=== PATIENT | female | born 1995 | race African-American/Black ===

== ENCOUNTER 2017-03-18 13:10 | Emergency (ER) | payer MEDICAID ==
[2017-03-18] MEDS ORDERED: ONDANSETRON 4 MG TAB.RAPDIS SL ONE (14:09)
[2017-03-18] MEDS ORDERED: NORMAL SALINE 1000 ML 1,000 ML IV PRN (14:09)
--- NOTE | 2017-03-18 14:09 | ER Document Report ---
ED Medical Screen (RME) - General Chief Complaint: Chest Pain Stated Complaint: CHEST PAIN/VOMITING Time Seen by Provider: 03/18/17 14:04 Mode of Arrival: Ambulatory Information source: Patient - HPI Patient complains to provider of: nausea and vomiting, Onset: Last week Onset/Duration: Persistent Quality of pain: Achy Severity: Mild Pain Level: 1 Associated Symptoms: Nausea, Vomiting Exacerbated by: Food Relieved by: Denies Similar symptoms previously: Yes Recently seen / treated by doctor: Yes Notes: 03/18/17 14:45 Patient is a 21-year-old female who is currently approximately 10 weeks , who presents to the emergency room complaining of nausea and vomiting that been occurring daily, she has been prescribed both Phenergan and Reglan but the vomiting has persisted, states anytime she tries to eat something it comes right back up, she was having some chest pain earlier today but that has completely resolved, she denies a fever, no urinary symptoms, no vaginal bleeding and no pelvic pain - Related Data Allergies/Adverse Reactions: No Known Allergies Allergy (Unverified 03/18/17 13:28) Past Medical History - Social History Chew tobacco use (# tins/day): No Frequency of alcohol use: None Drug Abuse: None Renal/ Medical History: Denies: Hx Peritoneal Dialysis Surgical Hx: Negative - Immunizations Hx Diphtheria, Pertussis, Tetanus Vaccination: No - unknown Physical Exam - Vital signs Vitals: Temp Pulse Resp BP Pulse Ox 98.5 F 108 H 16 124/85 97 03/18/17 13:26 03/18/17 13:26 03/18/17 13:26 03/18/17 13:26 03/18/17 13:26 Course - Vital Signs Vital signs: Temp Pulse Resp BP Pulse Ox 98.5 F 108 H 16 124/85 97 03/18/17 13:26 03/18/17 13:26 03/18/17 13:26 03/18/17 13:26 03/18/17 13:26 - Laboratory Result Diagrams: 03/18/17 14:20 03/18/17 14:20
[2017-03-18 14:54] LABS: APPEARANCE,URINE CLOUDY; BILIRUBIN,URINE NEGATIVE (NEGATIVE); GLUCOSE, URINE NEGATIVE (NEGATIVE); KETONES,URINE 20 mg/dL (NEGATIVE); LEUKOCYTE ESTERASE,URINE NEGATIVE (NEGATIVE); NITRITE,URINE NEGATIVE (NEGATIVE); PROTEIN,URINE NEGATIVE (NEGATIVE); URINE SPECIFIC GRAVITY 1.023
[2017-03-18 15:03] LABS: ABSOLUTE LYMPHOCYTES (AUTO) 1.2 10^3/uL (0.5-4.7); ABSOLUTE MONOCYTES (AUTO) 0.4 10^3/uL (0.1-1.4); ABSOLUTE NEUT (AUTO) 4.3 10^3/uL (1.7-8.2); BASOPHILS % (AUTO) 0.6 % (0-2); EOSINOPHILS % (AUTO) 0.4 % (0-6); HEMATOCRIT 39.7 % (36.0-47.0); HEMOGLOBIN 13.2 g/dL (12.0-15.5); HGB HCT DIFFERENCE -0.1; LYMPHOCYTES % (AUTO) 19.7 % (13-45); MEAN CORPUSCULAR HEMOGLOBIN 28.6 pg (27.0-33.4); MEAN CORPUSCULAR HGB CONC 33.2 g/dL (32.0-36.0); MEAN CORPUSCULAR VOLUME 86 fl (80-97); MONOCYTES % (AUTO) 6.8 % (3-13); SEGMENTED NEUTROPHILS % (AUTO) 72.5 % (42-78)
--- NOTE | 2017-03-18 15:15 | ER Document Report ---
ED GI/ - General Chief Complaint: Chest Pain Stated Complaint: CHEST PAIN/VOMITING Time Seen by Provider: 03/18/17 14:04 Mode of Arrival: Ambulatory Notes: The patient is a 21-year-old female, 10 weeks , presents with daily nausea and vomiting. She is trying Phenergan, Reglan and MagOxide without much relief of her symptoms. She is now having a dull mild headache and a burning in her substernal region. Denies hematemesis, fevers, diarrhea, abdominal pain, leakage of fluid, vaginal bleeding, constipation or rash - Related Data Allergies/Adverse Reactions: No Known Allergies Allergy (Unverified 03/18/17 13:28) Past Medical History - General Information source: Patient - Social History Smoking Status: Never Smoker Chew tobacco use (# tins/day): No Frequency of alcohol use: None Drug Abuse: None Family History: Reviewed & Not Pertinent Patient has suicidal ideation: No Patient has homicidal ideation: No Renal/ Medical History: Denies: Hx Peritoneal Dialysis Surgical Hx: Negative - Immunizations Hx Diphtheria, Pertussis, Tetanus Vaccination: No - unknown Review of Systems - Review of Systems Notes: REVIEW OF SYSTEMS: CONSTITUTIONAL: -fevers, -chills EENT: -eye pain, -difficulty swallowing, -nasal congestion CARDIOVASCULAR:-chest pain, -syncope. RESPIRATORY: -cough, -SOB GASTROINTESTINAL: -abdominal pain, +nausea, +vomiting, -diarrhea GENITOURINARY: -dysuria, -hematuria MUSCULOSKELETAL: -back pain, -neck pain SKIN: -rash or skin lesions. HEMATOLOGIC: -easy bruising or bleeding. LYMPHATIC: -swollen, enlarged glands. NEUROLOGICAL: -altered mental status or loss of consciousness, -headache, - neurologic symptoms PSYCHIATRIC: -anxiety, -depression. ALL OTHER SYSTEMS REVIEWED AND NEGATIVE. Physical Exam - Vital signs Vitals: Temp Pulse Resp BP Pulse Ox 98.5 F 108 H 16 124/85 97 03/18/17 13:26 03/18/17 13:26 03/18/17 13:26 03/18/17 13:03/18/17 13:26 - Notes Notes: PHYSICAL EXAMINATION: GENERAL: Well-appearing, well-nourished and in no acute distress. HEAD: Atraumatic, normocephalic. EYES: Pupils equal round and reactive to light, extraocular movements intact, sclera anicteric, conjunctiva are normal. ENT: nares patent, oropharynx clear without exudates. Moist mucous membranes. NECK: Normal range of motion, supple without lymphadenopathy LUNGS: Breath sounds clear to auscultation bilaterally and equal. No wheezes rales or rhonchi. HEART: Regular rate and rhythm without murmurs ABDOMEN: Soft, nontender, normoactive bowel sounds. No guarding, no rebound. No masses appreciated. EXTREMITIES: Normal range of motion, no pitting or edema. No cyanosis. NEUROLOGICAL: Cranial nerves grossly intact. Normal speech, normal gait. Normal sensory and motor exams. PSYCH: Normal mood, normal affect. SKIN: Warm, Dry, normal turgor, no rashes or lesions noted. Course - Re-evaluation Re-evalutation: Patient appears well. Has a small amount of ketones in urine, but her BMP is completely normal. No increased anion gap. His abdomen is soft and nontender. Her tachycardia resolved with fluids. EKG did not show any active ischemia. Pt does not appear to have [place]erhavve's (appears well and no current chest pain, ACS , PE (no SOB or hypoxia and resolution of tachycardia with fluids) or pneumothorax. Will add doxylamine and have her follow-up with her OB. - Vital Signs Vital signs: Temp Pulse Resp BP Pulse Ox 98.5 F 108 H 16 124/85 97 03/18/17 13:26 03/18/17 13:26 03/18/17 13:26 03/18/17 13:26 03/18/17 13:26 - Laboratory Result Diagrams: 03/18/17 14:20 03/18/17 14:20 Laboratory results interpreted by me: 03/18/17 03/18/17 14:20 14:20 Calcium 10.3 H Urine Ketones 20 H Urine Urobilinogen 2.0 H Urine Ascorbic Acid 40 H - EKG Interpretation by Dc EKG shows normal: Sinus rhythm, Buhl, Intervals, QRS Complexes, ST-T Waves Rate: Tachycardia - 101 Discharge - Discharge Clinical Impression: Hyperemesis gravidarum Condition: Stable Disposition: HOME, SELF-CARE Additional Instructions: VOMITING: Vomiting (or nausea without vomiting) can be caused by many other different problems. It can mean that something's wrong with the stomach, such as ulcers or inflammation or the intestinal tract, such as appendicitis. But it can also be a symptom of a problem that has nothing to do with the stomach or intestines. Vomiting is common with severe headaches, earaches, tonsillitis, and kidney infections, etc. We see it with pneumonia or heart attacks. Drugs can cause nausea and vomiting. Many abdominal problems cause vomiting; for example, gallstones, kidney stones, pancreatitis, and intestinal obstruction ( blocked bowels). In most cases, curing the vomiting depends on fixing the problem that caused it. For temporary relief, we may use an anti-nausea medicine. For home use, we can prescribe suppositories, chewable pills, pills that dissolve in the mouth, or liquid anti-nausea drugs. If the vomiting seems to be caused by a problem in the stomach, acid-suppressing drugs may be prescribed as well. It's important to avoid dehydration. Sip small amounts of clear liquids ( soft drinks, tea, broth, etc) . Try to take fluids frequently even if you are vomiting to prevent dehydration. Take increasing amounts of fluid and when liquids are being consumed successfully, advance to small amounts of bland food (toast, soups, mashed potatoes, etc.) until you are able to resume a regular diet. Avoid aspirin, tobacco, and alcohol. If the vomiting worsens, if the problem that's making you vomit worsens, or if there's evidence of bleeding in the stomach (such as black, tarry stool, or bloody or black vomit), you should return immediately. Also, return if abdominal pain worsens or becomes localized to one area or you develop high fever. Call your doctor if you aren't improved in 24 hours. INTRAVENOUS (I V) FLUIDS: As part of your care today, you received intravenous (IV) fluids. IV fluids are administered to patients who are dehydrated or to those who have certain chemical (electrolyte) abnormalities that need correcting. ANTINAUSEA MEDICATION: You have been given a medication to suppress nausea and vomiting. This type of medication can be given as a shot, pill, or suppository. It will usually last for many hours. Pills and shots usually last six to eight hours. For the typical illness, only one or two doses of the medication may be necessary. Mild lightheadedness may occur. This type of medicine can cause drowsiness. Do not drive or operate dangerous machinery while under its influence. Do not mix with alcohol. See your doctor at once if you have muscle spasms or tightness, or uncontrollable motions (particularly of the neck, mouth, or jaw). Persistent vomiting or severe lightheadedness should also be evaluated by the physician. REGLAN (METOCLOPRAMIDE): Reglan has been prescribed. This medicine affects the stomach and intestines. It can be used to treat nausea and vomiting, to prevent reflux of stomach acid up into the esophagus, or to increase the contractions of the stomach and intestines. It is often prescribed for esophagitis, and for paralysis of the stomach in diabetics. Reglan can cause either mild restlessness or drowsiness. You should contact the doctor at once if you become extremely restless, anxious, or cannot sleep, or if you develop uncontrollable motions of the lips, tongue, or jaw. Do not take alcohol with this medicine. Do not drive or operate machinery until you have been taking this medicine long enough to know how it affects you. Call the doctor if you develop abdominal pains, lightheadedness, black stool, or blood in the stool or vomitus. FOLLOW-UP CARE: If you have been referred to a physician for follow-up care, call the physician s office for an appointment as you were instructed or within the next two days. If you experience worsening or a significant change in your symptoms, notify the physician immediately or return to the Emergency Department at any time for re-evaluation. Prescriptions: Doxycycline Hyclate 100 mg PO BID #30 capsule
[2017-03-18 15:27] LABS: ALANINE AMINOTRANSFERASE 44 U/L (9-52); ALBUMIN 4.2 g/dL (3.5-5.0); ALKALINE PHOSPHATASE 99 U/L (38-126); ANION GAP 16 (5-19); ASPARTATE AMINO TRANSFERASE 31 U/L (14-36); BILIRUBIN,DIRECT 0.4 mg/dL (0.0-0.4); BILIRUBIN,TOTAL 0.5 mg/dL (0.2-1.3); BLOOD UREA NITROGEN 7 mg/dL (7-20); CALCIUM 10.3 mg/dL (8.4-10.2); CARBON DIOXIDE 23 mmol/L (22-30); CHLORIDE 102 mmol/L (98-107); CREATININE RESULT 0.64 mg/dL (0.52-1.25); GLUCOSE 94 mg/dL (75-110); LIPASE 254.2 U/L (23-300); POTASSIUM 3.9 mmol/L (3.6-5.0); SODIUM 140.5 mmol/L (137-145)
[2017-03-18 16:23] VITALS: BP 110/67
--- NOTE | 2017-03-18 20:35 | EKG REPORT ---
SEVERITY:- BORDERLINE ECG - SINUS TACHYCARDIA POOR R PROGRESSION ANTERIOR PRECORDIAL LEADS. : Confirmed by: Celestino Degroot MD 18-Mar-2017 20:34:14
== END 2017-03-18 16:21 | disposition home or self-care (01) ==
LOC: ER 13:10
DX: O21.0 Mild hyperemesis gravidarum (principal); R07.9 Chest pain, unspecified; R51 Headache; Z3A.10 10 weeks gestation of pregnancy
CPT/HCPCS: 93005; 99285; 36415; 87086; 84702; 83690; 85025; 80053; 81001; 93010; S0119; J7030; 96360

== ENCOUNTER 2017-03-23 09:50 | Emergency (ER) | payer MEDICAID ==
[2017-03-23] MEDS ORDERED: NORMAL SALINE 1000 ML 1,000 ML IV ONE (10:19)
--- NOTE | 2017-03-23 10:22 | ER Document Report ---
ED Medical Screen (RME) - General Chief Complaint: Headache Stated Complaint: HEADACHE/VOMITING/SHORTNESS OF BREATH Time Seen by Provider: 03/23/17 10:10 Mode of Arrival: Ambulatory Information source: Patient Notes: This is a 21-year-old female at 10-11 WGA who presents with persistent nausea and vomiting. She also has a mild right-sided temporal headache today. No fevers or chills. No abdominal pain. No dysuria. No vaginal bleeding. She was seen about 5 days ago with similar symptoms and states that she was better for a day but now she is having difficulty with the vomiting again. She last ate yesterday (pizza). Normal BM yesterday. Next OB appt 03/28. She has had an US this . I have greeted and performed a rapid initial assessment of this patient. A comprehensive ED assessment and evaluation of the patient, analysis of test results and completion of the medical decision making process will be conducted by additional ED providers. TRAVEL OUTSIDE OF THE [place] IN LAST 30 DAYS: No - Related Data Allergies/Adverse Reactions: No Known Allergies Allergy (Unverified 03/23/17 10:00) Home Medications: Current Home Medications Magnesium Oxide [Mag-Ox 400 mg Tablet] 400 mg PO DAILY 03/23/17 [History] Metoclopramide HCl [Reglan 10 mg Tablet] 10 mg PO Q6H 03/23/17 [History] Pnv7/Fe Asp Gly/Docusate/FA [Vinate Pn Care Tablet] 1 each PO DAILY 03/23/17 [ History] Past Medical History Renal/ Medical History: Denies: Hx Peritoneal Dialysis - Immunizations Hx Diphtheria, Pertussis, Tetanus Vaccination: No - unknown Physical Exam - Vital signs Vitals: Temp Pulse Resp BP Pulse Ox 98.3 F 104 H 18 120/87 H 96 03/23/17 09:55 03/23/17 09:55 03/23/17 09:55 03/23/17 09:55 03/23/17 09:55 - General General appearance: Appears well In distress: None - Respiratory Respiratory status: No respiratory distress Breath sounds: Normal. No: Rales, Rhonchi, Wheezing - Cardiovascular Rhythm: Tachycardia Heart sounds: Normal auscultation, S1 appreciated, S2 appreciated Course - Vital Signs Vital signs: Temp Pulse Resp BP Pulse Ox 98.3 F 104 H 18 120/87 H 96 03/23/17 09:55 03/23/17 09:55 03/23/17 09:55 03/23/17 09:55 03/23/17 09:55
--- NOTE | 2017-03-23 10:45 | ER Document Report ---
ED General - General Mode of Arrival: Ambulatory Information source: Patient TRAVEL OUTSIDE OF THE [place] IN LAST 30 DAYS: No - HPI Onset: Other Similar symptoms previously: No Recently seen / treated by doctor: No <INDIANA ADRIAN - Last Filed: 03/23/17 10:59> <JANAE POLLOCK - Last Filed: 03/23/17 16:23> - General Chief Complaint: Headache Stated Complaint: HEADACHE/VOMITING/SHORTNESS OF BREATH Time Seen by Provider: 03/23/17 10:10 Notes: Patient is a 21 year old female presenting to the emergency department for nausea and vomiting. Patient is 10-11 weeks and patient is . Patient is being [facility] for her . Patient was seen on 03/18/17 for these symptoms and states she was feeling better for about 1 day after being discharged and then she had symptoms start back again. Patient has nausea, vomiting, and a right sided temporal headache. Patient was trying Reglan, Phenergan and mag citrate at home with no relief. Patient denies any fevers, chills, abdominal pain, dysuria, or vaginal bleeding. Patient 's last ate pizza yesterday and had a normal bowel movement yesterday as well. Patient's next OB appointment is on 03/28/17. Patient has no known medical allergies. (INDIANA ADRIAN) - Related Data Allergies/Adverse Reactions: No Known Allergies Allergy (Unverified 03/23/17 10:00) Home Medications: Current Home Medications Magnesium Oxide [Mag-Ox 400 mg Tablet] 400 mg PO DAILY 03/23/17 [History] Metoclopramide HCl [Reglan 10 mg Tablet] 10 mg PO Q6H 03/23/17 [History] Pnv7/Fe Asp Gly/Docusate/FA [Vinate Pn Care Tablet] 1 each PO DAILY 03/23/17 [ History] Past Medical History - General Information source: Patient - Social History Smoking Status: Never Smoker Cigarette use (# per day): No Chew tobacco use (# tins/day): No Frequency of alcohol use: None Drug Abuse: None Family History: None Patient has suicidal ideation: No Patient has homicidal ideation: No - Medical History Medical History: Negative Surgical Hx: Negative - Immunizations Hx Diphtheria, Pertussis, Tetanus Vaccination: No - unknown <INDIANA ADRIAN - Last Filed: 03/23/17 10:59> Review of Systems - Review of Systems Constitutional: No symptoms reported EENT: No symptoms reported Cardiovascular: No symptoms reported Respiratory: No symptoms reported Gastrointestinal: See HPI, Nausea, Vomiting Genitourinary: No symptoms reported Female Genitourinary: See HPI, Musculoskeletal: No symptoms reported Skin: No symptoms reported Hematologic/Lymphatic: No symptoms reported Neurological/Psychological: See HPI, Headaches -: Yes All other systems reviewed and negative <INDIANA ADRIAN - Last Filed: 03/23/17 10:59> Physical Exam - Vital signs Interpretation: Normal - General General appearance: Appears well, Alert In distress: Mild - HEENT Head: Normocephalic, Atraumatic Eyes: Normal Pupils: PERRL Mucous membranes: Moist - Respiratory Respiratory status: No respiratory distress Chest status: Nontender Breath sounds: Normal Chest palpation: Normal - Cardiovascular Rhythm: Regular Heart sounds: Normal auscultation Murmur: No - Abdominal Inspection: Gravid female Distension: No distension Bowel sounds: Normal Tenderness: Nontender Organomegaly: No organomegaly - Back Back: Normal, Nontender - Extremities General upper extremity: Normal inspection, Normal ROM, Normal strength General lower extremity: Normal inspection, Normal ROM, Normal strength - Neurological Neuro grossly intact: Yes Cognition: Normal Orientation: AAOx4 [place] Coma Scale Eye Opening: Spontaneous [place] Coma Scale Verbal: Oriented [place] Coma Scale Motor: Obeys Commands [place] Coma Scale Total: 15 Speech: Normal - Psychological Associated symptoms: Normal affect, Normal mood - Skin Skin Temperature: Warm Skin Moisture: Dry <CARLOSADALINDIANA - Last Filed: 03/23/17 10:59> <JANAE POLLOCK - Last Filed: 03/23/17 16:23> - Vital signs Vitals: Temp Pulse Resp BP Pulse Ox 98.3 F 104 H 18 120/87 H 96 03/23/17 09:55 03/23/17 09:55 03/23/17 09:55 03/23/17 09:55 03/23/17 09:55 Course <INDIANA ADRIAN - Last Filed: 03/23/17 10:59> - Laboratory Result Diagrams: 03/23/17 10:45 03/23/17 10:45 <JANAE POLLOCK - Last Filed: 03/23/17 16:23> - Re-evaluation Re-evalutation: 03/23/17 14:21 Patient is actively vomiting liquid at this time. 03/23/17 16:19 The patient's nausea was improved quite a bit with Reglan and Benadryl. She previously had reported that Reglan did not seem to help. She has never tried taking it with Benadryl. He was given a printout of the diplegia's dosing instructions, and written instructions on how to make a similar generic version with [id number] medications. (JANAE POLLOCK) - Vital Signs Vital signs: Temp Pulse Resp BP Pulse Ox 98.3 F 76 16 112/78 100 03/23/17 09:55 03/23/17 11:35 03/23/17 11:35 03/23/17 14:29 03/23/17 14:30 - Laboratory Laboratory results interpreted by me: 03/23/17 03/23/17 10:45 14:00 Carbon Dioxide 21 L Calcium 10.6 H Urine Glucose (UA) >=500 H Urine Ketones 80 H Discharge <INDIANA ADRIAN - Last Filed: 03/23/17 10:59> <JANAE POLLOCK - Last Filed: 03/23/17 16:23> - Discharge Clinical Impression: Hyperemesis gravidarum Condition: Stable Disposition: HOME, SELF-CARE Additional Instructions: Hyperemesis Gravidarum: Hyperemesis gravidarum is the medical term for severe vomiting during . We don't know exactly why it occurs, but it's a common problem. Dehydration can occur. This reduces blood flow to the placenta, decreasing the baby's nourishment. The baby will also become dehydrated. There can be harmful changes in blood sodium, potassium, or acid balance. Our goal is to correct, and prevent, dehydration. For severe cases, we give IV fluids. Antinausea medication will be prescribed. (Don't be concerned about " defects" -- the risk to you and your baby from the hyperemesis is the biggest problem. The antinausea medication is very safe at this stage of .) Call the doctor if you have vaginal bleeding, abdominal pain, severe lightheadedness or weakness, or other alarming symptoms. TAKE THE REGLAN WITH A BENADRYL TABLET. DRINK SMALL SIPS OF COOL CLEAR LIQUIDS. TRY THE OTC DICLEGIS SHOWN. FOLLOW UP WITH [facility] OR THE HEALTH DEPARTMENT IF NOT IMPROVING. RETURN TO THE EMERGENCY ROOM IF ANY NEW OR WORSENING SYMPTOMS. Prescriptions: Metoclopramide HCl [Reglan 10 mg Tablet] 10 mg PO Q4 PRN #25 tablet PRN Reason: For Nausea/Vomiting Scribe Attestation: 03/23/17 16:23 I personally performed the services described in the documentation, reviewed and edited the documentation which was dictated to the scribe in my presence, and it accurately records my words and actions. (JANAE POLLOCK) Scribe Documentation - Scribe Written by Hannah:: Hannah Garay, 03/23/17 10:58 acting as scribe for :: Piedad <INDIANA ADRIAN - Last Filed: 03/23/17 10:59>
[2017-03-23 11:04] LABS: ABSOLUTE LYMPHOCYTES (AUTO) 1.1 10^3/uL (0.5-4.7); ABSOLUTE MONOCYTES (AUTO) 0.4 10^3/uL (0.1-1.4); ABSOLUTE NEUT (AUTO) 3.8 10^3/uL (1.7-8.2); BASOPHILS % (AUTO) 0.8 % (0-2); EOSINOPHILS % (AUTO) 0.3 % (0-6); HEMATOCRIT 39.5 % (36.0-47.0); HEMOGLOBIN 13.3 g/dL (12.0-15.5); HGB HCT DIFFERENCE 0.4; LYMPHOCYTES % (AUTO) 20.9 % (13-45); MEAN CORPUSCULAR HEMOGLOBIN 28.7 pg (27.0-33.4); MEAN CORPUSCULAR HGB CONC 33.8 g/dL (32.0-36.0); MEAN CORPUSCULAR VOLUME 85 fl (80-97); MONOCYTES % (AUTO) 7.7 % (3-13); RED BLOOD COUNT 4.64 10^6/uL (3.72-5.28); RED CELL DISTRIBUTION WIDTH 12.6 % (11.5-14.0); SEGMENTED NEUTROPHILS % (AUTO) 70.3 % (42-78); WHITE BLOOD COUNT 5.5 10^3/uL (4.0-10.5)
[2017-03-23 11:25] LABS: ANION GAP 13 (5-19); BLOOD UREA NITROGEN 8 mg/dL (7-20); CALCIUM 10.6 mg/dL (8.4-10.2); CARBON DIOXIDE 21 mmol/L (22-30); CHLORIDE 104 mmol/L (98-107); CREATININE RESULT 0.55 mg/dL (0.52-1.25); GLUCOSE 100 mg/dL (75-110); SODIUM 138.4 mmol/L (137-145)
[2017-03-23] MEDS ORDERED: DEXTROSE 5%-LACTATED RINGERS 1,000 ML IV ONE ×2 (12:17→14:43)
[2017-03-23 14:16] LABS: APPEARANCE,URINE CLEAR; BILIRUBIN,URINE NEGATIVE (NEGATIVE); GLUCOSE, URINE >=500 mg/dL (NEGATIVE); KETONES,URINE 80 mg/dL (NEGATIVE); LEUKOCYTE ESTERASE,URINE NEGATIVE (NEGATIVE); NITRITE,URINE NEGATIVE (NEGATIVE); PROTEIN,URINE NEGATIVE (NEGATIVE); URINE SPECIFIC GRAVITY 1.013; UROBILINOGEN,URINE NEGATIVE mg/dL (<2.0)
[2017-03-23] MEDS ORDERED: METOCLOPRAMIDE HCL INJ/PF 10 MG/2 ML SDV IV ONE (14:17)
[2017-03-23] MEDS ORDERED: DIPHENHYDRAMINE HCL 50 MG/ML VIAL IV ONE (14:17)
[2017-03-23 17:36] VITALS: BP 118/67
== END 2017-03-23 17:00 | disposition home or self-care (01) ==
LOC: ER 09:50
DX: O21.0 Mild hyperemesis gravidarum (principal); O26.899 Other specified pregnancy related conditions, unspecified trimester; R51 Headache; Z3A.00 Weeks of gestation of pregnancy not specified
CPT/HCPCS: 99284; 96361; 96374; 96375; 36415; 85025; 80048; 81001; J1200; J2765; J7030

== ENCOUNTER 2017-04-04 14:39 | Emergency (ER) | payer MEDICAID ==
[2017-04-04] MEDS ORDERED: MAG HYDROX/AL HYDROX/SIMETH SUSP 30 ML UDCUP PO ONE (15:16)
[2017-04-04] MEDS ORDERED: METOCLOPRAMIDE HCL ORAL SOLN 10 MG/10 ML UDCUP PO ONE (15:16)
[2017-04-04] MEDS ORDERED: LIDOCAINE 2% VISCOUS SOLN 20 ML UDCUP PO ONE (15:16)
[2017-04-04] MEDS ORDERED: NORMAL SALINE 1000 ML 1,000 ML IV PRN (15:17)
--- NOTE | 2017-04-04 15:18 | ER Document Report ---
ED Medical Screen (RME) - General Chief Complaint: Chest Pain Stated Complaint: CHEST PAIN/NAUSEA Time Seen by Provider: 04/04/17 15:16 Mode of Arrival: Ambulatory Information source: Patient TRAVEL OUTSIDE OF THE [place] IN LAST 30 DAYS: No - HPI Patient complains to provider of: Chest pain, epigastric abdominal pain, nausea and vomiting Onset: Yesterday Onset/Duration: Persistent Quality of pain: Sharp, Stabbing Severity: Moderate Pain Level: 4 Associated Symptoms: Abdominal pain, Chest pain, Nausea, Vomiting Exacerbated by: Denies Relieved by: Denies Similar symptoms previously: Yes Recently seen / treated by doctor: Yes Notes: 04/04/17 15:18 Patient is a 21-year-old female who is currently 14 weeks , who presents to the emergency room complaining of epigastric abdominal pain, chest pain, nausea and vomiting 2 days, no diarrhea, no fever chills, no pelvic cramping or vaginal bleeding - Related Data Allergies/Adverse Reactions: No Known Allergies Allergy (Verified 04/04/17 15:16) Past Medical History Renal/ Medical History: Denies: Hx Peritoneal Dialysis - Immunizations Hx Diphtheria, Pertussis, Tetanus Vaccination: No - unknown Physical Exam - Vital signs Vitals: Temp Pulse Resp BP Pulse Ox 98.6 F 88 16 129/81 H 100 04/04/17 15:13 04/04/17 15:13 04/04/17 15:13 04/04/17 15:13 04/04/17 15:13 Course - Vital Signs Vital signs: Temp Pulse Resp BP Pulse Ox 98.6 F 88 16 129/81 H 100 04/04/17 15:13 04/04/17 15:13 04/04/17 15:13 04/04/17 15:13 04/04/17 15:13
[2017-04-04] MEDS ORDERED: METOCLOPRAMIDE HCL INJ/PF 10 MG/2 ML SDV IV ONE (15:30)
[2017-04-04 15:52] LABS: ABSOLUTE LYMPHOCYTES (AUTO) 0.9 10^3/uL (0.5-4.7); ABSOLUTE MONOCYTES (AUTO) 0.5 10^3/uL (0.1-1.4); BASOPHILS % (AUTO) 0.4 % (0-2); EOSINOPHILS % (AUTO) 0.1 % (0-6); HEMATOCRIT 40.2 % (36.0-47.0); HEMOGLOBIN 13.8 g/dL (12.0-15.5); HGB HCT DIFFERENCE 1.2; LYMPHOCYTES % (AUTO) 13.5 % (13-45); MEAN CORPUSCULAR HEMOGLOBIN 29.1 pg (27.0-33.4); MEAN CORPUSCULAR HGB CONC 34.2 g/dL (32.0-36.0); MEAN CORPUSCULAR VOLUME 85 fl (80-97); RED BLOOD COUNT 4.73 10^6/uL (3.72-5.28); RED CELL DISTRIBUTION WIDTH 12.9 % (11.5-14.0); WHITE BLOOD COUNT 6.4 10^3/uL (4.0-10.5)
[2017-04-04 16:12] LABS: ALANINE AMINOTRANSFERASE 42 U/L (9-52); ALBUMIN 4.6 g/dL (3.5-5.0); ALKALINE PHOSPHATASE 115 U/L (38-126); ANION GAP 17 (5-19); ASPARTATE AMINO TRANSFERASE 36 U/L (14-36); BILIRUBIN,DIRECT 0.6 mg/dL (0.0-0.4); BILIRUBIN,TOTAL 1.1 mg/dL (0.2-1.3); BLOOD UREA NITROGEN 7 mg/dL (7-20); CALCIUM 10.7 mg/dL (8.4-10.2); CARBON DIOXIDE 21 mmol/L (22-30); CHLORIDE 100 mmol/L (98-107); CREATININE RESULT 0.62 mg/dL (0.52-1.25); GLUCOSE 106 mg/dL (75-110); LIPASE 155.5 U/L (23-300); POTASSIUM 3.9 mmol/L (3.6-5.0); SODIUM 137.8 mmol/L (137-145); TOTAL PROTEIN 8.9 g/dL (6.3-8.2)
[2017-04-04 17:46] LABS: APPEARANCE,URINE SLIGHTLY-CLOUDY; BILIRUBIN,URINE NEGATIVE (NEGATIVE); GLUCOSE, URINE NEGATIVE (NEGATIVE); KETONES,URINE 80 mg/dL (NEGATIVE); LEUKOCYTE ESTERASE,URINE NEGATIVE (NEGATIVE); NITRITE,URINE NEGATIVE (NEGATIVE); PROTEIN,URINE 30 mg/dL (NEGATIVE); URINE SPECIFIC GRAVITY 1.016
--- NOTE | 2017-04-04 18:03 | ER Document Report ---
ED General - General Chief Complaint: Chest Pain Stated Complaint: CHEST PAIN/NAUSEA Time Seen by Provider: 04/04/17 15:16 Mode of Arrival: Ambulatory TRAVEL OUTSIDE OF THE [place] IN LAST 30 DAYS: No - HPI Patient complains to provider of: Chest pain nausea vomiting Notes: Is coming in for nausea vomiting chest wall pain. Patient states chest pain occurring at the following up. Patient has multiple times of vomitus today. Patient states she is currently on Unisom and B6 with no relief. Patient states she has not tried anything else patient currently follows up with wound care clinic. Patient otherwise has no other complaints upon my evaluation. - Related Data Allergies/Adverse Reactions: No Known Allergies Allergy (Verified 04/04/17 15:16) Past Medical History - General Information source: Patient - Social History Smoking Status: Never Smoker Chew tobacco use (# tins/day): No Frequency of alcohol use: None Drug Abuse: None Family History: None Patient has suicidal ideation: No Patient has homicidal ideation: No Renal/ Medical History: Denies: Hx Peritoneal Dialysis - Immunizations Hx Diphtheria, Pertussis, Tetanus Vaccination: No - unknown Review of Systems - Review of Systems Constitutional: No symptoms reported EENT: No symptoms reported Cardiovascular: Chest pain Respiratory: No symptoms reported Gastrointestinal: Nausea, Vomiting Genitourinary: No symptoms reported Female Genitourinary: No symptoms reported Musculoskeletal: No symptoms reported Skin: No symptoms reported Hematologic/Lymphatic: No symptoms reported Neurological/Psychological: No symptoms reported -: Yes All other systems reviewed and negative Physical Exam - Vital signs Vitals: Temp Pulse Resp BP Pulse Ox 98.6 F 88 16 129/81 H 100 04/04/17 15:13 04/04/17 15:13 04/04/17 15:13 04/04/17 15:13 04/04/17 15:13 Interpretation: Normal - General General appearance: Appears well, Alert - HEENT Head: Normocephalic, Atraumatic Eyes: Normal Pupils: PERRL - Respiratory Respiratory status: No respiratory distress Chest status: Nontender Breath sounds: Normal Chest palpation: Normal - Cardiovascular Rhythm: Regular Heart sounds: Normal auscultation Murmur: No - Abdominal Inspection: Normal, Gravid female Distension: No distension Bowel sounds: Normal Tenderness: Nontender Organomegaly: No organomegaly - Back Back: Normal, Nontender - Extremities General upper extremity: Normal inspection, Nontender, Normal color, Normal ROM , Normal temperature General lower extremity: Normal inspection, Nontender, Normal color, Normal ROM , Normal temperature, Normal weight bearing. No: Miranda's sign - Neurological Neuro grossly intact: Yes Cognition: Normal Orientation: AAOx4 [place] Coma Scale Eye Opening: Spontaneous [place] Coma Scale Verbal: Oriented [place] Coma Scale Motor: Obeys Commands [place] Coma Scale Total: 15 Speech: Normal Motor strength normal: LUE, RUE, LLE, RLE Sensory: Normal - Psychological Associated symptoms: Normal affect, Normal mood - Skin Skin Temperature: Warm Skin Moisture: Dry Skin Color: Normal Course - Re-evaluation Re-evalutation: 04/04/17 19:04 Patient coming in for evaluation of chest pain nausea vomiting. Patient chest pain resolved with GI cocktail. EKG and blood work did not show any critical pathology. Patient has bedside ultrasound performed showing a heart rate of 160. Patient was given IV fluids here. Educated patient about other over- the-counter nausea medications given a prescription for Reglan. Patient was discharged home. - Vital Signs Vital signs: Temp Pulse Resp BP Pulse Ox 98.6 F 88 16 129/81 H 100 04/04/17 15:13 04/04/17 15:13 04/04/17 15:13 04/04/17 15:13 04/04/17 15:13 - Laboratory Result Diagrams: 04/04/17 15:36 04/04/17 15:36 Laboratory results interpreted by me: 04/04/17 04/04/17 04/04/17 15:36 15:36 17:09 Carbon Dioxide 21 L Calcium 10.7 H Direct Bilirubin 0.6 H Total Protein 8.9 H Serum HCG, Qual POSITIVE H Urine Protein 30 H Urine Ketones 80 H Urine Urobilinogen 4.0 H Discharge - Discharge Clinical Impression: Nausea/vomiting in Condition: Good Disposition: HOME, SELF-CARE Instructions: Vomiting ([facility]) Additional Instructions: . Your laboratory studies reveal no critical pathology today. Please return to the ER if symptoms worsen. Follow-up with your primary care physician. Take medication as prescribed. You have been seen for vomiting during . You should continue to drink plenty of water and consider taking a solution such as Pedialyte if your having difficulty eating food. Please return if you become unable to drink any fluids for more than 12 hours, urinate less than twice a day, pass out, or have any other symptoms that are concerning to you. For nausea and vomiting during I recomment: Start with 10-12.5 mg of pyridoxine (vitamin B6) three times a day for 2 days. If not fully effective, Increase to 12.5 mg of pyridoxine four times a day for 2 days. If not fully effective, Increase to 25 mg of pyridoxine three times a day for 2 days. If not fully effective, Continue 25 mg pyridoxine 3 times a day, and add 12.5 mg of doxylamine before bedtime each day for 2 days. If not fully effective, Continue 25 mg pyridoxine 3 times a day, and take 12.5 mg of doxylamine twice a day. If not fully effective, Continue 25 mg pyridoxine 3 times a day, and take 12.5 mg of doxylamine three times a day. If not fully effective, Continue 25 mg pyridoxine 3 times a day, and 12.5 mg of doxylamine 3 times a day , while adding Emetrol, one to two tablespoons (15-30 cc) taken once or twice a day as needed. (Emetrol is an [id number] mixture of sugar syrups and phosphoric acid [phosphorylated carbohydrate solution]) that acts by soothing the actual wall of the gastrointestinal tract). If not fully effective, Consult with your doctor. Prescriptions: Metoclopramide HCl [Reglan] 5 mg PO Q6 #20 tablet Forms: Return to Work
[2017-04-04 18:48] VITALS: BP 131/78
--- NOTE | 2017-04-05 00:15 | EKG REPORT ---
SEVERITY:- BORDERLINE ECG - SINUS OR ECTOPIC ATRIAL RHYTHM SHORT [place] INTERVAL, ACCELERATED AV CONDUCTION : Confirmed by: Zbigniew Knox 05-Apr-2017 00:15:16
== END 2017-04-04 18:45 | disposition home or self-care (01) ==
LOC: ER 14:39
DX: O21.9 Vomiting of pregnancy, unspecified (principal); O26.899 Other specified pregnancy related conditions, unspecified trimester; R07.89 Other chest pain; Z3A.00 Weeks of gestation of pregnancy not specified; Z79.899 Other long term (current) drug therapy
CPT/HCPCS: 93005; 99285; 96361; 96374; 36415; 83690; 84703; 85025; 80053; 81001; 84484; 93010; J3490 ×3; J2765; J7030

== ENCOUNTER 2017-04-05 22:08 | Emergency (ER) | payer MEDICAID ==
[2017-04-05 22:22] VITALS: BP 126/78
== END 2017-04-05 23:18 | disposition left against medical advice (07) ==
LOC: ER 22:08
DX: Z53.21 Procedure and treatment not carried out due to patient leaving prior to being seen by health care provider (principal)

== ENCOUNTER 2017-04-08 19:44 | Observation (INO) | payer MEDICAID ==
[2017-04-08] MEDS ORDERED: METOCLOPRAMIDE HCL INJ/PF 10 MG/2 ML SDV IV ONE (21:50)
[2017-04-08] MEDS ORDERED: NORMAL SALINE 1000 ML 1,000 ML IV ONE (21:51)
[2017-04-08] MEDS ORDERED: DIPHENHYDRAMINE HCL 50 MG/ML VIAL IV ONE (21:51)
--- NOTE | 2017-04-08 21:54 | ER Document Report ---
ED GI/ - General Chief Complaint: Nausea/Vomiting Stated Complaint: CHEST PAIN Time Seen by Provider: 04/08/17 21:50 Notes: 21 year old female, 14 weeks , comes by EMS for chief complaint of vomiting and chest pain, states she has been evaluated multiple times for this ( also in [place]). States she is on "4 meds" but unable to tell me which. Denies fever, hematemesis, vaginal bleeding, lower abdominal pain. Pending appointment at [facility]. TRAVEL OUTSIDE OF THE [place] IN LAST 30 DAYS: No - Related Data Allergies/Adverse Reactions: No Known Allergies Allergy (Verified 04/04/17 15:16) Past Medical History - Social History Family History: None Patient has suicidal ideation: No Patient has homicidal ideation: No Renal/ Medical History: Denies: Hx Peritoneal Dialysis - Immunizations Hx Diphtheria, Pertussis, Tetanus Vaccination: No - unknown Physical Exam - Vital signs Vitals: Temp Pulse Resp BP Pulse Ox 98.8 F 97 20 129/85 H 99 04/08/17 19:55 04/08/17 19:55 04/08/17 19:55 04/08/17 19:55 04/08/17 19:55 - Respiratory Respiratory status: No respiratory distress Breath sounds: Normal. No: Decreased air movement, Wheezing - Cardiovascular Rhythm: Regular. No: Tachycardia Heart sounds: Normal auscultation, S1 appreciated, S2 appreciated Course - Vital Signs Vital signs: Temp Pulse Resp BP Pulse Ox 98.8 F 97 20 129/85 H 99 04/08/17 19:55 04/08/17 19:55 04/08/17 19:55 04/08/17 19:55 04/08/17 19:55
[2017-04-08 22:07] LABS: ABSOLUTE LYMPHOCYTES (AUTO) 0.9 10^3/uL (0.5-4.7); ABSOLUTE MONOCYTES (AUTO) 0.4 10^3/uL (0.1-1.4); ABSOLUTE NEUT (AUTO) 5.6 10^3/uL (1.7-8.2); BASOPHILS % (AUTO) 0.4 % (0-2); EOSINOPHILS % (AUTO) 0.1 % (0-6); HEMATOCRIT 38.3 % (36.0-47.0); HEMOGLOBIN 12.7 g/dL (12.0-15.5); HGB HCT DIFFERENCE -0.2; MEAN CORPUSCULAR HEMOGLOBIN 28.5 pg (27.0-33.4); MEAN CORPUSCULAR HGB CONC 33.3 g/dL (32.0-36.0); MEAN CORPUSCULAR VOLUME 86 fl (80-97); MONOCYTES % (AUTO) 5.7 % (3-13); RED BLOOD COUNT 4.47 10^6/uL (3.72-5.28); RED CELL DISTRIBUTION WIDTH 12.7 % (11.5-14.0); SEGMENTED NEUTROPHILS % (AUTO) 80.8 % (42-78); WHITE BLOOD COUNT 6.9 10^3/uL (4.0-10.5)
[2017-04-08 22:27] LABS: ALANINE AMINOTRANSFERASE 44 U/L (9-52); ALBUMIN 4.2 g/dL (3.5-5.0); ALKALINE PHOSPHATASE 115 U/L (38-126); ANION GAP 19 (5-19); ASPARTATE AMINO TRANSFERASE 32 U/L (14-36); BILIRUBIN,DIRECT 0.5 mg/dL (0.0-0.4); BILIRUBIN,TOTAL 0.8 mg/dL (0.2-1.3); BLOOD UREA NITROGEN 4 mg/dL (7-20); CALCIUM 10.1 mg/dL (8.4-10.2); CARBON DIOXIDE 16 mmol/L (22-30); CHLORIDE 103 mmol/L (98-107); CREATININE RESULT 0.47 mg/dL (0.52-1.25); GLUCOSE 80 mg/dL (75-110); POTASSIUM 4.1 mmol/L (3.6-5.0); TOTAL PROTEIN 8.3 g/dL (6.3-8.2)
[2017-04-08] MEDS ORDERED: FAMOTIDINE INJ/PF 20 MG/2 ML SDV IV ONE (23:24)
--- NOTE | 2017-04-08 23:31 | ER Document Report ---
ED General - General Chief Complaint: Nausea/Vomiting Stated Complaint: CHEST PAIN Time Seen by Provider: 04/08/17 21:50 Mode of Arrival: Medic Information source: Patient, Friend TRAVEL OUTSIDE OF THE [place] IN LAST 30 DAYS: No - HPI Notes: 21 year old female, 14 weeks , comes by EMS for chief complaint of vomiting and chest pain, states she has been evaluated multiple times for this ( also in [place] 04/07/17). Patient reports at that time she had a negative chest x-ray. She describes vomiting 10 times without blood. She reports no vaginal discharge or bleeding. Denies fever, hematemesis, vaginal bleeding, lower abdominal pain. Pending appointment at [facility]. Patient describes her chest pain is midsternal and worse after vomiting. She denies any difficulty breathing. She reports no significant abdominal pain. Medications Carafate Phenergan and Zofran and potassium. Family history no gallbladder disease. Patient does have a history of an esophageal disorder, describing it as a pocket of air in her esophagus in between her lungs and her stomach. I question whether not this was a hiatal hernia but the could not comment further. She never had upper endoscopy nor any surgical procedure performed for this reported abnormality. - Related Data Allergies/Adverse Reactions: No Known Allergies Allergy (Verified 04/04/17 15:16) Past Medical History - General Information source: Patient - Social History Smoking Status: Never Smoker Frequency of alcohol use: None Drug Abuse: None Lives with: Family Family History: None Patient has suicidal ideation: No Patient has homicidal ideation: No Renal/ Medical History: Denies: Hx Peritoneal Dialysis - Immunizations Hx Diphtheria, Pertussis, Tetanus Vaccination: No - unknown Review of Systems - Review of Systems Notes: REVIEW OF SYSTEMS: CONSTITUTIONAL : Denies fever, chills, or sweats. Denies recent illness. EENT: Denies eye, ear, throat, or mouth pain or symptoms. Denies nasal or sinus congestion or discharge. Denies throat, tongue, or mouth swelling or difficulty swallowing. CARDIOVASCULAR: Denies palpitations or racing or irregular heart beat. Denies ankle edema. RESPIRATORY: Denies cough, cold, or chest congestion. Denies shortness of breath, difficulty breathing, or wheezing. GASTROINTESTINAL: Denies abdominal pain or distention. Denies diarrhea. Denies blood in vomitus, stools, or per rectum. Denies black, tarry stools. Denies constipation. GENITOURINARY: Denies difficulty urinating, painful urination, burning, frequency, blood in urine, or discharge. FEMALE GENITOURINARY: Denies vaginal bleeding, heavy or abnormal periods, irregular periods. Denies vaginal discharge or odor. MUSCULOSKELETAL: Denies back or neck pain or stiffness. Denies joint pain or swelling. SKIN: Denies rash, lesions or sores. HEMATOLOGIC : Denies easy bruising or bleeding. LYMPHATIC: Denies swollen, enlarged glands. NEUROLOGICAL: Denies confusion or altered mental status. Denies passing out or loss of consciousness. Denies dizziness or lightheadedness. Denies headache. Denies weakness or paralysis or loss of use of either side. Denies problems with gait or speech. Denies sensory loss, numbness, or tingling. Denies seizures. PSYCHIATRIC: Denies anxiety or stress. Denies depression, suicidal ideation, or homicidal ideation. ALL OTHER SYSTEMS REVIEWED AND NEGATIVE. Dictation was performed using [facility] voice recognition software Physical Exam - Vital signs Vitals: Temp Pulse Resp BP Pulse Ox 98.8 F 97 20 129/85 H 99 04/08/17 19:55 04/08/17 19:55 04/08/17 19:55 04/08/17 19:55 04/08/17 19:55 - Notes Notes: PHYSICAL EXAMINATION: GENERAL: Well-appearing, well-nourished and in no acute distress. HEAD: Atraumatic, normocephalic. EYES: Pupils equal round and reactive to light, extraocular movements intact, conjunctiva are normal. ENT: Nares patent, oropharynx clear without exudates. Dry mucous membranes. NECK: Normal range of motion, supple without lymphadenopathy LUNGS: Breath sounds clear to auscultation bilaterally and equal. No wheezes rales or rhonchi. HEART: Regular rate and rhythm without murmurs. Mild midsternal discomfort to the chest on palpation. ABDOMEN: Soft, nondistended abdomen. No guarding, no rebound. No masses appreciated. Minimal if any midepigastric discomfort. Negative Escobar's. No obvious hepatosplenomegaly. Female : deferred Musculoskeletal: Normal range of motion, no pitting or edema. No cyanosis. NEUROLOGICAL: Cranial nerves grossly intact. Normal speech, normal gait. Normal sensory, motor exams PSYCH: Normal mood, normal affect. SKIN: Warm, Dry, normal turgor, no rashes or lesions noted. Course - Re-evaluation Re-evalutation: 04/08/17 23:32 Patient was given IV Benadryl Reglan normal saline bolus and IV Pepcid. 04/09/17 03:03 Repeat exam patient denied any pain and was able to tolerate p.o. fluids. Patient was given additional normal saline with 20 KCl 1 L. Patient showed somewhat low bicarb level with urinary ketosis, and the patient was advised to be admitted for further rehydration and nausea control and further evaluation. Patient however politely declined and requested to go home. We will instruct the patient to take her metoclopramide as instructed, and we will add in ranitidine for acid control. Patient is told to observe a bland diet. No obvious evidence for urinary tract infection or renal insufficiency or significant anemia. 04/09/17 04:04 Patient was given a p.o. fluid challenge, but she failed and felt nauseated again and finally agreed to admission for further evaluation. I question underlying gastritis, less likely Zenker's diverticulum. possible hiatal hernia given the discomfort. There is no evidence for acute FL or cardiac ischemia or pancreatitis or hepatitis or GI bleed. Given the recent reported negative chest x-ray from 2 days ago in [place], I do not suspect cardiomyopathy versus congestive failure versus PE given the chest pain that occurs after vomiting that is nonpleuritic. 04/09/17 04:[address] Ramirez and she agrees to evaluate the patient further for potential admission. - Vital Signs Vital signs: Temp Pulse Resp BP Pulse Ox 98.8 F 97 20 129/85 H 99 04/08/17 19:55 04/08/17 19:55 04/08/17 19:55 04/08/17 19:55 04/08/17 19:55 - Laboratory Result Diagrams: 04/08/17 21:55 04/08/17 21:55 Laboratory results interpreted by me: 04/08/17 04/08/17 04/09/17 21:55 21:55 01:17 Seg Neutrophils % 80.8 H Carbon Dioxide 16 L BUN 4 L Creatinine 0.47 L Direct Bilirubin 0.5 H Total Protein 8.3 H Urine Protein 30 H Urine Ketones 80 H Urine Urobilinogen 2.0 H - EKG Interpretation by Me EKG shows normal: Sinus rhythm Additional EKG results interpreted by me: 04/08/17 23:32 EKG as interpreted by me showed normal sinus rhythm heart rate of 82. There is no gross evidence for acute FL or ischemia identified. There is no change from previous EKG reviewed from 04/04/17. Critical Care Note - Critical Care Note Total time excluding time spent on procedures (mins): 39 Discharge - Discharge Clinical Impression: Hyperemesis gravidarum, Dehydration, Esophagitis Referrals: ELVIS PETTY MD [Primary Care Provider] - Follow up as needed
[2017-04-08] MEDS ORDERED: MAG HYDROX/AL HYDROX/SIMETH SUSP 30 ML UDCUP PO ONE (23:33)
--- NOTE | 2017-04-08 23:42 | EKG REPORT ---
SEVERITY:- BORDERLINE ECG - SINUS OR ECTOPIC ATRIAL RHYTHM SHORT [place] INTERVAL, ACCELERATED AV CONDUCTION : Confirmed by: Zbigniew Knox 08-Apr-2017 23:41:38
[2017-04-09] MEDS ORDERED: POTASSI CL 20 MEQ/1/2NS 1L 1,000 ML IV ONE (00:42)
[2017-04-09 01:29] LABS: APPEARANCE,URINE SLIGHTLY-CLOUDY; BILIRUBIN,URINE NEGATIVE (NEGATIVE); GLUCOSE, URINE NEGATIVE (NEGATIVE); KETONES,URINE 80 mg/dL (NEGATIVE); LEUKOCYTE ESTERASE,URINE NEGATIVE (NEGATIVE); NITRITE,URINE NEGATIVE (NEGATIVE); PROTEIN,URINE 30 mg/dL (NEGATIVE); URINE SPECIFIC GRAVITY 1.026
[2017-04-09] MEDS ORDERED: DICYCLOMINE HCL 20 MG TABLET PO SCH (06:00)
[2017-04-09] MEDS: POTASSI CL 20 MEQ/D5-1/2NS 1L 1000 ML IV PRN ×3 (07:10→23:10)
[2017-04-09] MEDS: ONDANSETRON HCL INJ/PF 4 MG/2 ML SDV IV SCH ×3 (07:19→21:20)
[2017-04-09] MEDS: LANSOPRAZOLE 30 MG TAB.RAP.DR PO SCH (07:20)
[2017-04-09] MEDS: PYRIDOXINE HCL 50 MG TABLET PO SCH ×4 (08:40→23:08)
[2017-04-09] MEDS: METOCLOPRAMIDE HCL 10 MG TABLET PO SCH ×4 (09:45→21:20)
[2017-04-09] MEDS ORDERED: PRENATAL VITAMIN W-O CA NO5/FE FUMARATE/FA CAPSULE PO SCH (10:00)
[2017-04-09] MEDS: DICYCLOMINE HCL 20 MG TABLET PO SCH ×2 (15:12→21:20)
[2017-04-10] MEDS: DICYCLOMINE HCL 20 MG TABLET PO SCH ×2 (04:07→08:20)
[2017-04-10] MEDS: LANSOPRAZOLE 30 MG TAB.RAP.DR PO SCH (06:15)
[2017-04-10] MEDS: PYRIDOXINE HCL 50 MG TABLET PO SCH (06:15)
[2017-04-10] MEDS: ONDANSETRON HCL INJ/PF 4 MG/2 ML SDV IV SCH (06:15)
[2017-04-10] MEDS: POTASSI CL 20 MEQ/D5-1/2NS 1L 1000 ML IV PRN (07:18)
[2017-04-10 07:29] LABS: ALANINE AMINOTRANSFERASE 36 U/L (9-52); ALBUMIN 3.2 g/dL (3.5-5.0); ALKALINE PHOSPHATASE 88 U/L (38-126); ANION GAP 10 (5-19); ASPARTATE AMINO TRANSFERASE 24 U/L (14-36); BILIRUBIN,DIRECT 0.4 mg/dL (0.0-0.4); BILIRUBIN,TOTAL 0.6 mg/dL (0.2-1.3); CALCIUM 9.2 mg/dL (8.4-10.2); CARBON DIOXIDE 22 mmol/L (22-30); CHLORIDE 105 mmol/L (98-107); CREATININE RESULT 0.53 mg/dL (0.52-1.25); GLUCOSE 117 mg/dL (75-110); POTASSIUM 3.8 mmol/L (3.6-5.0); SODIUM 136.7 mmol/L (137-145); TOTAL PROTEIN 6.5 g/dL (6.3-8.2)
[2017-04-10 07:32] LABS: BLOOD UREA NITROGEN < 2 mg/dL (7-20)
[2017-04-10 08:14] VITALS: BP 111/68
[2017-04-10] MEDS: METOCLOPRAMIDE HCL 10 MG TABLET PO SCH (08:20)
--- NOTE | 2017-04-10 08:37 | PDOC PROGRESS REPORT ---
Subjective-OB Subjective: Post Delivery Day: 21 year old. Denies any needs at this time Wants to go home, can't sleep and back hurts in bed, no nausea, feeling better and thinks she will be better off at home, Physical Exam (OB) Vital Signs: Temp Pulse Resp BP Pulse Ox 98.8 F 81 16 111/68 98 04/10/17 08:00 04/10/17 08:00 04/10/17 08:00 04/10/17 08:00 04/10/17 08:00 Intake & Output 04/09/17 04/10/17 04/11/17 06:59 06:59 06:59 Intake Total 1840 Output Total 4250 Balance -2410 - Abdomen Hernia Present: No Objective-Diagnostic Laboratory: 04/10/17 06:09 04/10/17 04/10/17 06:09 06:09 Sodium 136.7 L Potassium 3.8 Chloride 105 Carbon Dioxide 22 Anion Gap 10 BUN < 2 L Creatinine 0.53 Est GFR ( Amer) > 60 Est GFR (Non-Af Amer) > 60 Glucose 117 H Calcium 9.2 Total Bilirubin 0.6 AST 24 ALT 36 Alkaline Phosphatase 88 Total Protein 6.5 Albumin 3.2 L TSH 1.03 Assessment and Plan(PN) - Assessment and Plan (1) Nausea/vomiting in Is this a current diagnosis for this admission?: Yes (2) Hyperemesis gravidarum Is this a current diagnosis for this admission?: Yes - Time Spent with Patient Time with patient: Less than 15 minutes Medications reviewed and adjusted accordingly: Yes - Disposition Anticipated Discharge: Home Within: Other - home today
--- NOTE | 2017-04-10 08:41 | PDOC DISCHARGE SUMMARY ---
Final Diagnosis - Final Diagnosis (2) Hyperemesis gravidarum Is this a current diagnosis for this admission?: Yes Discharge Data - Discharge Medication Home Medications: Magnesium Oxide [Mag-Ox 400 mg Tablet] 400 mg PO DAILY 03/23/17 Metoclopramide HCl [Reglan 10 mg Tablet] 10 mg PO Q6H 03/23/17 Pnv7/Fe Asp Gly/Docusate/FA [Vinate Pn Care Tablet] 1 each PO DAILY 03/23/17 Metoclopramide HCl [Reglan] 5 mg PO Q6 #20 tablet 04/04/17 Dicyclomine HCl [Bentyl 20 mg Tablet] 20 mg PO Q6A #60 tablet 04/10/17 Lansoprazole [Prevacid 30 mg Odt Tablet] 30 mg PO Q6AM #30 tab.rap.dr 04/10/17 Metoclopramide HCl [Reglan 10 mg Tablet] 10 mg PO ACHS #30 tablet 04/10/17 Pnv W-O Ca No5/Fe Fumarate/FA [-U Multiple Vitamin Capsule] 1 cap PO DAILY #0 capsule 04/10/17 Pyridoxine HCl [Vitamin B-6 Tablet 50 mg] 25 mg PO Q6 #60 tablet 04/10/17 Admission Note: hyperemesis - Diagnosis Test Laboratory: Temp Pulse Resp BP Pulse Ox 98.8 F 81 16 111/68 98 04/10/17 08:00 04/10/17 08:00 04/10/17 08:00 04/10/17 08:00 04/10/17 08:00 - Discharge information/Instructions Discharge Activity: Activity As Tolerated Discharge Diet: As Tolerated Disposition: HOME, SELF-CARE Follow up with: [facility] in: 1, Weeks
== END 2017-04-10 09:51 | disposition home or self-care (01) ==
LOC: ER 19:44 → EH 04-09 05:19 → 2N 04-09 06:20
PROVIDERS: ADMIT Specialist; ATTEND Specialist
DX: O21.0 Mild hyperemesis gravidarum (principal); O99.611 Diseases of the digestive system complicating pregnancy, first trimester; K21.9 Gastro-esophageal reflux disease without esophagitis; K22.8 Other specified diseases of esophagus; Z3A.14 14 weeks gestation of pregnancy; Z79.899 Other long term (current) drug therapy
CPT/HCPCS: 93005; 99291; 96361; 96375; 96365; 96366; 36415 ×2; 83690; 84443; 85025; 80053 ×2; 81001; 84484; 93010; J3490 ×8; J1200; J3480 ×3; J2765; J2405 ×2; J7030; S0028; G0378

== ENCOUNTER 2017-04-15 10:44 | Inpatient (IN) | payer MEDICAID ==
[2017-04-15] MEDS ORDERED: PROMETHAZINE HCL 25 MG SUPP.RECT PR PRN (11:52)
[2017-04-15] MEDS ORDERED: RINGERS SOLUTION,LACTATED 1,000 ML IV PRN (11:53)
[2017-04-15] MEDS ORDERED: ONDANSETRON HCL INJ/PF 4 MG/2 ML SDV IV PRN (12:13)
[2017-04-15] MEDS ORDERED: FAMOTIDINE 20 MG TABLET PO ONE (13:00)
[2017-04-15 13:02] LABS: HEMATOCRIT 41.2 % (36.0-47.0); HGB HCT DIFFERENCE 0.8; MEAN CORPUSCULAR VOLUME 85 fl (80-97); RED BLOOD COUNT 4.84 10^6/uL (3.72-5.28); RED CELL DISTRIBUTION WIDTH 12.8 % (11.5-14.0)
[2017-04-15 13:25] LABS: ALANINE AMINOTRANSFERASE 98 U/L (9-52); ALBUMIN 4.5 g/dL (3.5-5.0); ALKALINE PHOSPHATASE 148 U/L (38-126); AMYLASE 320 U/L (30-110); ANION GAP 19 (5-19); ASPARTATE AMINO TRANSFERASE 61 U/L (14-36); BILIRUBIN,DIRECT 0.6 mg/dL (0.0-0.4); BILIRUBIN,TOTAL 0.9 mg/dL (0.2-1.3); BLOOD UREA NITROGEN 5 mg/dL (7-20); CALCIUM 10.5 mg/dL (8.4-10.2); CARBON DIOXIDE 14 mmol/L (22-30); CHLORIDE 104 mmol/L (98-107); CREATININE RESULT 0.58 mg/dL (0.52-1.25); GLUCOSE 85 mg/dL (75-110); LIPASE 857.7 U/L (23-300); POTASSIUM 4.3 mmol/L (3.6-5.0); SODIUM 137.3 mmol/L (137-145); TOTAL PROTEIN 8.6 g/dL (6.3-8.2)
[2017-04-15 13:40] LABS: FREE T3 2.97 pg/mL (2.77-5.27)
[2017-04-15 13:55] LABS: THYROID STIMULATING HORMONE 0.53 uIU/mL (0.47-4.68)
[2017-04-15 14:49] LABS: BASOPHILS % (MANUAL) 1 % (0-2); EOSINOPHILS % (MANUAL) 0 % (0-6); LYMPHOCYTES % (MANUAL) 20 % (13-45); RBC MORPHOLOGY COMMENT NORMO-CYTIC/CHROMIC; TOTAL CELLS COUNTED 100
--- NOTE | 2017-04-15 14:56 | RADIOLOGY REPORT (SQ) ---
EXAM DESCRIPTION: U/S ABDOMEN LTD W/DOPPLER COMPLETED DATE/TIME: 04/15/2017 2:26 pm REASON FOR STUDY: R U Q PAIN COMPARISON: None. TECHNIQUE: Dynamic and static grayscale images acquired of the abdomen and recorded on PACS. Joeo beronica selected color Doppler and spectral images recorded. LIMITATIONS: None. FINDINGS: PANCREAS: The body appears normal. Visualization was limited because of bowel gas. LIVER: 11.8 cm. Normal echotexture. LIVER VASCULATURE: Normal directional flow of the main portal vein and hepatic veins. GALLBLADDER: No stones. No wall thickening or pericholecystic fluid. There is questionably some slu dge in the gallbladder versus artifact. ULTRASOUND-DETECTED BLACK'S SIGN: Negative. INTRAHEPATIC DUCTS AND COMMON DUCT: Common bile duct is normal at 3 mm. There is no intrahepatic tarah clyde dilatation. INFERIOR VENA CAVA: Normal flow. AORTA: No aneurysm. RIGHT KIDNEY: Normal size, 10.4 cm. Normal echogenicity. No solid or suspicious masses. No hydroneph rosis. No calcifications. PERITONEAL AND RIGHT PLEURAL SPACE: No ascites or effusions. OTHER: No other significant findings. IMPRESSION: There may be a some sludge in the gallbladder, the study was otherwise unremarkable. TECHNICAL DOCUMENTATION: JOB ID: [id number] [employer]- All Rights Reserved
[2017-04-15 17:42] LABS: APPEARANCE,URINE SLIGHTLY-CLOUDY; BILIRUBIN,URINE NEGATIVE (NEGATIVE); GLUCOSE, URINE NEGATIVE (NEGATIVE); KETONES,URINE 80 mg/dL (NEGATIVE); LEUKOCYTE ESTERASE,URINE NEGATIVE (NEGATIVE); NITRITE,URINE NEGATIVE (NEGATIVE); PROTEIN,URINE 100 mg/dL (NEGATIVE); URINE SPECIFIC GRAVITY 1.025; UROBILINOGEN,URINE NEGATIVE mg/dL (<2.0)
[2017-04-15 17:55] LABS: BACTERIA,URINE 3+ /HPF
[2017-04-15] MEDS ORDERED: NORMAL SALINE 1000 ML 1,000 ML with THIAMINE HCL 100 MG, MVI, ADULT NO.1 WITH VIT K 10 ... IV ONE ×4 (18:00)
--- NOTE | 2017-04-15 18:33 | PDOC H&P ---
History of Present Illness Admission Date/PCP: 04/15/17 10:44 ELVIS PETTY MD Patient complains of: N/V for the last several weeks. 21lb weight loss at 15 weeks, Pt also now c/o epigastric pain and unable to tolerate po intake. History of Present Illness: NIDIA VELARDE is a 21 year old female with n/v of and [facility] transfer at 14 weeks. She was seen 14+5ega and noted 17# weight loss with multiple ER visits. However pt refused admission at that time. See today in the office with 21lb weight loss at 15 weeks (4# weight los in 3 days). Pt also now c/o epigastric pain and unable to tolerate po intake worsened. She is on multiple medications for n/v of none of which are working. Past Medical History LMP: 12/31/2016 Gynecological Infection: No Baby 1 Year: 11 Weeks: 40 Weight: 3.345 kg Delivery: Spontaneous Vaginal Delivery Cardiac Medical History: Reports: Hypertension - current only Denies: Congestive Heart Failure, Myocardial Infarction, Pulmonary Embolism, Heart Murmur Pulmonary Medical History: Denies: Asthma, Bronchitis, Chronic Obstructive Pulmonary Disease (COPD), Pneumonia, Sleep Apnea, Tuberculosis Neurological Medical History: Denies: Seizures Endocrine Medical History: Denies: Hyperthyroidism, Hypothyroidism Renal/ Medical History: Denies: End Stage Renal Disease Malignancy Medical History: Denies: Breast Cancer, Cervical Cancer, Ovarian Cancer GI Medical History: Denies: Cirrhosis, Gastroesophageal Reflux Disease, Hiatal Hernia Musculoskeltal Medical History: Denies: Arthritis, Fibromyalgia Psychiatric Medical History: Denies: Bipolar Disorder, Depression, Post Traumatic Stress Disorder Infectious Medical History: Denies: HIV Past Surgical History Past Surgical History: Reports: None Social History Information Source: Patient Lives with: Family Smoking Status: Never Smoker Frequency of Alcohol Use: None Hx Recreational Drug Use: No Drugs: None Hx Prescription Drug Abuse: No - Advance Directive Resuscitation Status: Full Code Family History Family History: None Parental Family History Reviewed: No Children Family History Reviewed: NA Sibling(s) Family History Reviewed.: NA Medication/Allergy Home Medications: Magnesium Oxide [Mag-Ox 400 mg Tablet] 400 mg PO DAILY 03/23/17 Metoclopramide HCl [Reglan 10 mg Tablet] 10 mg PO Q6H 03/23/17 Pnv7/Fe Asp Gly/Docusate/FA [Vinate Pn Care Tablet] 1 each PO DAILY 03/23/17 Metoclopramide HCl [Reglan] 5 mg PO Q6 #20 tablet 04/04/17 Dicyclomine HCl [Bentyl 20 mg Tablet] 20 mg PO Q6A #60 tablet 04/10/17 Lansoprazole [Prevacid 30 mg Odt Tablet] 30 mg PO Q6AM #30 tab. 04/10/17 Metoclopramide HCl [Reglan 10 mg Tablet] 10 mg PO ACHS #30 tablet 04/10/17 Pnv W-O Ca No5/Fe Fumarate/FA [-U Multiple Vitamin Capsule] 1 cap PO DAILY #0 capsule 04/10/17 Pyridoxine HCl [Vitamin B-6 Tablet 50 mg] 25 mg PO Q6 #60 tablet 04/10/17 Allergies/Adverse Reactions: No Known Allergies Allergy (Verified 04/04/17 15:16) Review of Systems Constitutional: PRESENT: headache(s), weakness, weight loss Respiratory: ABSENT: cough, hemoptysis Gastrointestinal: PRESENT: abdominal pain, heartburn, nausea, vomiting. ABSENT : constipation, diarrhea, hematemesis, hematochezia Genitourinary: ABSENT: dysuria, hematuria Musculoskeletal: ABSENT: joint swelling Integumentary: ABSENT: rash, wounds Neurological: ABSENT: abnormal gait, abnormal speech, confusion, dizziness, focal weakness, syncope Psychiatric: ABSENT: anxiety, depression, homidical ideation, suicidal ideation Endocrine: ABSENT: cold intolerance, heat intolerance, polydipsia, polyuria Hematologic/Lymphatic: ABSENT: easy bleeding, easy bruising Physical Exam - Physical Exam Vital Signs: Intake & Output 04/14/17 04/15/17 04/16/17 06:59 06:59 06:59 Weight 82.1 kg General appearance: PRESENT: no acute distress, well-developed, well-nourished Head exam: PRESENT: atraumatic, normocephalic Respiratory exam: PRESENT: clear to auscultation fannie, symmetrical, unlabored. ABSENT: tachypnea, wheezes Cardiovascular exam: PRESENT: RRR. ABSENT: diastolic murmur, rubs, systolic murmur Pulses: PRESENT: normal dorsalis pedis pul, +2 pedal pulses bilateral Vascular exam: PRESENT: normal capillary refill GI/Abdominal exam: PRESENT: normal bowel sounds, soft. ABSENT: distended, guarding, mass, organolmegaly, rebound, tenderness Rectal exam: PRESENT: deferred Extremities exam: PRESENT: full ROM. ABSENT: calf tenderness, clubbing, pedal edema Neurological exam: PRESENT: alert, awake, oriented to person, oriented to place , oriented to time, oriented to situation, CN II-XII grossly intact. ABSENT: motor sensory deficit Psychiatric exam: PRESENT: appropriate affect, normal mood. ABSENT: homicidal ideation, suicidal ideation Skin exam: PRESENT: dry, intact, warm. ABSENT: cyanosis, rash Result Laboratory Results: 04/15/17 12:55 04/15/17 12:55 04/15/17 04/15/17 12:55 12:55 WBC 6.0 RBC 4.84 Hgb 14.0 Hct 41.2 MCV 85 MCH 29.0 MCHC 34.0 RDW 12.8 Plt Count 304 Sodium 137.3 Potassium 4.3 Chloride 104 Carbon Dioxide 14 L Anion Gap 19 BUN 5 L Creatinine 0.58 Est GFR ( Amer) > 60 Est GFR (Non-Af Amer) > 60 Glucose 85 Calcium 10.5 H Total Bilirubin 0.9 AST 61 H ALT 98 H Alkaline Phosphatase 148 H Total Protein 8.6 H Albumin 4.5 Amylase 320 H Lipase 857.7 H Impressions: sludge noted of gallbladder. Status: Pending Assessment & Plan - Diagnosis (1) Pancreatitis Qualifiers: Chronicity: acute Pancreatitis type: other Is this a current diagnosis for this admission?: YesPlan: NPO. 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 (2) Dehydration Is this a current diagnosis for this admission?: YesPlan: Banana Bag and IVF ordered. NPO due to Hyperemesis and poss pancreatitis (3) Hyperemesis gravidarum Is this a current diagnosis for this admission?: YesPlan: NPO and meds ordered. NPO now and plan for NPO until n/v improved - Time Time Spent: 30 to 50 Minutes Critical Time spent with patient: Less than 15 minutes Medications reviewed and adjusted accordingly: Yes Anticipated discharge: Home Within: within 72 hours - Inpatient Certification Based on my medical assessment, after consideration of the patient's comorbidities, presenting symptoms, or acuity I expect that the services needed warrant INPATIENT care.: Yes I certify that my determination is in accordance with my understanding of Medicare's requirements for reasonable and necessary INPATIENT services [42 CFR 412.3e].: Yes Medical Necessity: Failure to Improve With Outpatient Therapy, Need Close Monitoring Due to Risk of Patient Decompensation, Need For IV Fluids
[2017-04-15] MEDS ORDERED: HYDROMORPHONE HCL INJ/PF 2 MG/ML AMPULE IV PRN (18:43)
[2017-04-15] MEDS: FAMOTIDINE 20 MG TABLET PO SCH (21:25)
--- NOTE | 2017-04-15 21:48 | CONSULTATION REPORT E ---
Consultation Report NAME: NIDIA VELARDE : 1995 AGE: 21Y DATE: 04/15/2017 228 A TO: EVE LAUREN M.D. FROM: TRI VAZ M.D. Requesting Physician REASON FOR CONSULTATION: Patient with vomiting and noted elevated lipase and sludge in the gallbladder. HISTORY OF PRESENT ILLNESS: This is a 21-year-old female who has been having some mild chest discomfort radiating to the epigastric area for about a month. Last night complained of vomiting and then went to the primary care physician who noted tenderness in her epigastric area and sent to [facility]. She had blood work done and noted to have elevated lipase of about greater than 800 and LFTs slightly elevated. Her white count, however, was normal. PAST MEDICAL HISTORY: History of , first time about 5 years ago and had a normal delivery then. She is about 15 weeks at this time. No other past medical history. REVIEW OF SYSTEMS: As in HPI, complaining of epigastric pains with nausea and vomiting. It makes her have some mild chest discomfort radiating to the epigastric area for about a month now. No other symptoms. All other systems are unremarkable and are normal. SOCIAL HISTORY: Patient denies smoking, drinking or drug use. ALLERGIES: None known. PHYSICAL EXAMINATION: GENERAL APPEARANCE: A well-developed, well-nourished 21-year-old female about 15 weeks in no apparent acute distress. HEENT: Neck is supple, no thyromegaly. RESPIRATORY: Lungs are clear. HEART: Regular sinus rhythm. ABDOMEN: Soft with epigastric tenderness. No right upper quadrant tenderness. EXTREMITIES: No edema. IMPRESSION: 1. Gallstone pancreatitis. 2. uterine 15 weeks. PLAN: Keep her on bowel rest, n.p.o. except for ice chips. She can have pain medications as needed. Repeat all the blood work in the morning and if they are trending down, we could probably start her back on p.o. liquids and progress as tolerated. She will likely need a laparoscopic cholecystectomy but if she does not have another episode or remains asymptomatic, it can wait until after the delivery of her baby. DICTATING PHYSICIAN: EVE LAUREN M.D. [id number] [facility]#: [id number] 2007 ID: [id number] JOB#: [id number] ACCT: [id number] cc:EVE LAUREN M.D. >
[2017-04-16 06:26] LABS: ABSOLUTE LYMPHOCYTES (AUTO) 1.5 10^3/uL (0.5-4.7); ABSOLUTE MONOCYTES (AUTO) 0.7 10^3/uL (0.1-1.4); ABSOLUTE NEUT (AUTO) 3.3 10^3/uL (1.7-8.2); BASOPHILS % (AUTO) 0.9 % (0-2); EOSINOPHILS % (AUTO) 0.3 % (0-6); HEMATOCRIT 35.7 % (36.0-47.0); HGB HCT DIFFERENCE 0.3; MEAN CORPUSCULAR HGB CONC 33.7 g/dL (32.0-36.0); MEAN CORPUSCULAR VOLUME 86 fl (80-97); MONOCYTES % (AUTO) 12.1 % (3-13); RED BLOOD COUNT 4.14 10^6/uL (3.72-5.28); RED CELL DISTRIBUTION WIDTH 12.8 % (11.5-14.0); SEGMENTED NEUTROPHILS % (AUTO) 59.7 % (42-78); WHITE BLOOD COUNT 5.5 10^3/uL (4.0-10.5)
[2017-04-16 06:41] LABS: LIPASE 895.1 U/L (23-300)
[2017-04-16 06:43] LABS: ALANINE AMINOTRANSFERASE 78 U/L (9-52); ALBUMIN 3.3 g/dL (3.5-5.0); ALKALINE PHOSPHATASE 111 U/L (38-126); ANION GAP 14 (5-19); ASPARTATE AMINO TRANSFERASE 52 U/L (14-36); BILIRUBIN,DIRECT 0.7 mg/dL (0.0-0.4); BILIRUBIN,TOTAL 1.1 mg/dL (0.2-1.3); BLOOD UREA NITROGEN 4 mg/dL (7-20); CALCIUM 9.4 mg/dL (8.4-10.2); CARBON DIOXIDE 15 mmol/L (22-30); CHLORIDE 109 mmol/L (98-107); CREATININE RESULT 0.53 mg/dL (0.52-1.25); GLUCOSE 72 mg/dL (75-110); POTASSIUM 3.7 mmol/L (3.6-5.0); SODIUM 138.3 mmol/L (137-145); TOTAL PROTEIN 6.7 g/dL (6.3-8.2)
[2017-04-16] MEDS: FAMOTIDINE 20 MG TABLET PO SCH ×2 (10:52→22:40)
--- NOTE | 2017-04-16 11:23 | PDOC PROGRESS REPORT ---
Subjective Progress Note for:: 04/16/17 Subjective:: Patient reports he is feeling better, no nausea vomiting or pain. She is received nothing for pain. Physical Exam Vital Signs: Temp Pulse Resp BP Pulse Ox 97.5 F 85 15 118/71 99 04/16/17 08:42 04/16/17 08:42 04/16/17 08:42 04/16/17 08:42 04/16/17 08:42 Intake & Output 04/15/17 04/16/17 04/17/17 06:59 06:59 06:59 Output Total 700 Balance -700 Weight 82.1 kg General appearance: PRESENT: no acute distress GI/Abdominal exam: PRESENT: other - Abdomen is completely benign no peritoneal signs no rigidity no guarding no organomegaly. Results Laboratory Results: 04/16/17 05:39 04/16/17 05:39 04/15/17 04/15/17 04/15/17 12:55 12:55 12:55 WBC 6.0 RBC 4.84 Hgb 14.0 Hct 41.2 MCV 85 MCH 29.0 MCHC 34.0 RDW 12.8 Plt Count 304 Seg Neutrophils % Not Reportable Lymphocytes % Not Reportable Monocytes % Not Reportable Eosinophils % Not Reportable Basophils % Not Reportable Absolute Neutrophils Not Reportable Absolute Lymphocytes Not Reportable Absolute Monocytes Not Reportable Absolute Eosinophils Not Reportable Absolute Basophils Not Reportable Sodium 137.3 Potassium 4.3 Chloride 104 Carbon Dioxide 14 L Anion Gap 19 BUN 5 L Creatinine 0.58 Est GFR ( Amer) > 60 Est GFR (Non-Af Amer) > 60 Glucose 85 Uric Acid Calcium 10.5 H Total Bilirubin 0.9 AST 61 H ALT 98 H Alkaline Phosphatase 148 H Total Protein 8.6 H Albumin 4.5 Amylase 320 H Lipase 857.7 H TSH 0.53 Free T4 1.83 Free T3 pg/mL 2.97 Urine Color Urine Appearance Urine pH Ur Specific [place] Urine Protein Urine Glucose (UA) Urine Ketones Urine Blood Urine Nitrite Ur Leukocyte Esterase Ur Squamous Epith Cells 04/15/17 04/15/17 04/16/17 12:55 16:59 05:39 WBC RBC Hgb Hct MCV MCH MCHC RDW Plt Count Seg Neutrophils % Lymphocytes % Monocytes % Eosinophils % Basophils % Absolute Neutrophils Absolute Lymphocytes Absolute Monocytes Absolute Eosinophils Absolute Basophils Sodium Potassium Chloride Carbon Dioxide Anion Gap BUN Creatinine Est GFR ( Amer) Est GFR (Non-Af Amer) Glucose Uric Acid 8.0 H Calcium Total Bilirubin AST ALT Alkaline Phosphatase Total Protein Albumin Amylase 298 H Lipase 895.1 H TSH Free T4 Free T3 pg/mL Urine Color YELLOW Urine Appearance SLIGHTLY-CLOUDY Urine pH 6.0 Ur Specific [place] 1.025 Urine Protein 100 H Urine Glucose (UA) NEGATIVE Urine Ketones 80 H Urine Blood NEGATIVE Urine Nitrite NEGATIVE Ur Leukocyte Esterase NEGATIVE Ur Squamous Epith Cells FEW 04/16/17 04/16/17 05:39 05:39 WBC 5.5 RBC 4.14 Hgb 12.0 Hct 35.7 L MCV 86 MCH 29.0 MCHC 33.7 RDW 12.8 Plt Count 256 Seg Neutrophils % 59.7 Lymphocytes % 27.0 Monocytes % 12.1 Eosinophils % 0.3 Basophils % 0.9 Absolute Neutrophils 3.3 Absolute Lymphocytes 1.5 Absolute Monocytes 0.7 Absolute Eosinophils 0.0 Absolute Basophils 0.0 Sodium 138.3 Potassium 3.7 Chloride 109 H Carbon Dioxide 15 L Anion Gap 14 BUN 4 L Creatinine 0.53 Est GFR ( Amer) > 60 Est GFR (Non-Af Amer) > 60 Glucose 72 L Uric Acid Calcium 9.4 Total Bilirubin 1.1 AST 52 H ALT 78 H Alkaline Phosphatase 111 Total Protein 6.7 Albumin 3.3 L Amylase Lipase TSH Free T4 Free T3 pg/mL Urine Color Urine Appearance Urine pH Ur Specific [place] Urine Protein Urine Glucose (UA) Urine Ketones Urine Blood Urine Nitrite Ur Leukocyte Esterase Ur Squamous Epith Cells Impressions: Abdomen Ultrasound 04/15/17 00:00 IMPRESSION: There may be a some sludge in the gallbladder, the study was otherwise unremarkable. Assessment & Plan - Diagnosis (1) Pancreatitis Qualifiers: Chronicity: acute Pancreatitis type: other Is this a current diagnosis for this admission?: YesPlan: 1. Clinically improved however lipase level still mildly elevated. There is no immediate indication for surgical intervention. More significantly however is patient's persisting lactic acidosis; the exact etiology remains somewhat unclear Recommendations 1. We will step up level of fluid resuscitation with 2 L of normal saline 2. We will check electrolytes later this evening. 3. We will keep her on ice chips for now. Discussed the above with Dr. Shrape, [employer] PERSON
[2017-04-16] MEDS: DEXTROSE 5%-NORMAL SALINE 1,000 ML IV PRN (11:39)
--- NOTE | 2017-04-16 14:04 | PDOC PROGRESS REPORT ---
Subjective Progress Note for:: 04/16/17 Subjective:: feeling better. pain resolved. last vomiting yesterday. Physical Exam - Physical Exam Vital Signs: Temp Pulse Resp BP Pulse Ox 97.5 F 81 14 111/72 100 04/16/17 11:38 04/16/17 11:38 04/16/17 11:38 04/16/17 11:38 04/16/17 11:38 Intake & Output 04/15/17 04/16/17 04/17/17 06:59 06:59 06:59 Output Total 700 Balance -700 Weight 82.1 kg General appearance: PRESENT: no acute distress, cooperative GI/Abdominal exam: PRESENT: soft - nontender, nondistended. Result Laboratory Results: 04/16/17 05:39 04/16/17 05:39 04/15/17 04/15/17 04/15/17 12:55 12:55 12:55 WBC 6.0 RBC 4.84 Hgb 14.0 Hct 41.2 MCV 85 MCH 29.0 MCHC 34.0 RDW 12.8 Plt Count 304 Seg Neutrophils % Not Reportable Lymphocytes % Not Reportable Monocytes % Not Reportable Eosinophils % Not Reportable Basophils % Not Reportable Absolute Neutrophils Not Reportable Absolute Lymphocytes Not Reportable Absolute Monocytes Not Reportable Absolute Eosinophils Not Reportable Absolute Basophils Not Reportable Sodium Potassium Chloride Carbon Dioxide Anion Gap BUN Creatinine Est GFR ( Amer) Est GFR (Non-Af Amer) Glucose Uric Acid 8.0 H Calcium Total Bilirubin AST ALT Alkaline Phosphatase Total Protein Albumin Amylase Lipase TSH 0.53 Free T4 1.83 Free T3 pg/mL 2.97 Urine Color Urine Appearance Urine pH Ur Specific [place] Urine Protein Urine Glucose (UA) Urine Ketones Urine Blood Urine Nitrite Ur Leukocyte Esterase Ur Squamous Epith Cells 04/15/17 04/16/17 04/16/17 16:59 05:39 05:39 WBC 5.5 RBC 4.14 Hgb 12.0 Hct 35.7 L MCV 86 MCH 29.0 MCHC 33.7 RDW 12.8 Plt Count 256 Seg Neutrophils % 59.7 Lymphocytes % 27.0 Monocytes % 12.1 Eosinophils % 0.3 Basophils % 0.9 Absolute Neutrophils 3.3 Absolute Lymphocytes 1.5 Absolute Monocytes 0.7 Absolute Eosinophils 0.0 Absolute Basophils 0.0 Sodium Potassium Chloride Carbon Dioxide Anion Gap BUN Creatinine Est GFR ( Amer) Est GFR (Non-Af Amer) Glucose Uric Acid Calcium Total Bilirubin AST ALT Alkaline Phosphatase Total Protein Albumin Amylase 298 H Lipase 895.1 H TSH Free T4 Free T3 pg/mL Urine Color YELLOW Urine Appearance SLIGHTLY-CLOUDY Urine pH 6.0 Ur Specific [place] 1.025 Urine Protein 100 H Urine Glucose (UA) NEGATIVE Urine Ketones 80 H Urine Blood NEGATIVE Urine Nitrite NEGATIVE Ur Leukocyte Esterase NEGATIVE Ur Squamous Epith Cells FEW 04/16/17 05:39 WBC RBC Hgb Hct MCV MCH MCHC RDW Plt Count Seg Neutrophils % Lymphocytes % Monocytes % Eosinophils % Basophils % Absolute Neutrophils Absolute Lymphocytes Absolute Monocytes Absolute Eosinophils Absolute Basophils Sodium 138.3 Potassium 3.7 Chloride 109 H Carbon Dioxide 15 L Anion Gap 14 BUN 4 L Creatinine 0.53 Est GFR ( Amer) > 60 Est GFR (Non-Af Amer) > 60 Glucose 72 L Uric Acid Calcium 9.4 Total Bilirubin 1.1 AST 52 H ALT 78 H Alkaline Phosphatase 111 Total Protein 6.7 Albumin 3.3 L Amylase Lipase TSH Free T4 Free T3 pg/mL Urine Color Urine Appearance Urine pH Ur Specific [place] Urine Protein Urine Glucose (UA) Urine Ketones Urine Blood Urine Nitrite Ur Leukocyte Esterase Ur Squamous Epith Cells Impressions: Abdomen Ultrasound 04/15/17 00:00 IMPRESSION: There may be a some sludge in the gallbladder, the study was otherwise unremarkable. Assessment & Plan - Diagnosis (1) Pancreatitis Qualifiers: Chronicity: acute Pancreatitis type: other Is this a current diagnosis for this admission?: Yes (2) Dehydration Is this a current diagnosis for this admission?: Yes (4) Hyperemesis gravidarum Is this a current diagnosis for this admission?: Yes - Time Time Spent with patient: Less than 15 minutes Critical Time spent with patient: Less than 15 minutes Anticipated discharge: Home Within: within 48 hours - Inpatient Certification Based on my medical assessment, after consideration of the patient's comorbidities, presenting symptoms, or acuity I expect that the services needed warrant INPATIENT care.: Yes I certify that my determination is in accordance with my understanding of Medicare's requirements for reasonable and necessary INPATIENT services [42 CFR 412.3e].: Yes Medical Necessity: Need Close Monitoring Due to Risk of Patient Decompensation, Need For IV Fluids, Need for Pain Control Post Hospital Care: D/C [employer] Documentation - d/w Dr. Hopkins who agrees with conservative management of signs and symptoms for now. Feel that patient is improving. d/w pt that termination of would not necessarily resolve her symptoms and likely a separate process. voiced understanding. Pt indicates at this time that she desires to continue .
[2017-04-16] MEDS ORDERED: NORMAL SALINE 1000 ML 1,000 ML with THIAMINE HCL 100 MG, MVI, ADULT NO.1 WITH VIT K 10 ... IV ONE ×4 (18:00)
[2017-04-16 18:34] LABS: ABSOLUTE LYMPHOCYTES (AUTO) 1.3 10^3/uL (0.5-4.7); ABSOLUTE MONOCYTES (AUTO) 0.6 10^3/uL (0.1-1.4); ABSOLUTE NEUT (AUTO) 2.6 10^3/uL (1.7-8.2); BASOPHILS % (AUTO) 1.1 % (0-2); EOSINOPHILS % (AUTO) 0.5 % (0-6); HEMATOCRIT 36.5 % (36.0-47.0); HEMOGLOBIN 12.2 g/dL (12.0-15.5); HGB HCT DIFFERENCE 0.1; LYMPHOCYTES % (AUTO) 28.5 % (13-45); MEAN CORPUSCULAR HEMOGLOBIN 28.7 pg (27.0-33.4); MEAN CORPUSCULAR HGB CONC 33.3 g/dL (32.0-36.0); MEAN CORPUSCULAR VOLUME 86 fl (80-97); MONOCYTES % (AUTO) 12.7 % (3-13); RED BLOOD COUNT 4.23 10^6/uL (3.72-5.28); RED CELL DISTRIBUTION WIDTH 12.6 % (11.5-14.0); SEGMENTED NEUTROPHILS % (AUTO) 57.2 % (42-78); WHITE BLOOD COUNT 4.6 10^3/uL (4.0-10.5)
[2017-04-16 18:54] LABS: ALANINE AMINOTRANSFERASE 84 U/L (9-52); ALBUMIN 3.5 g/dL (3.5-5.0); ALKALINE PHOSPHATASE 121 U/L (38-126); AMYLASE 259 U/L (30-110); ANION GAP 11 (5-19); ASPARTATE AMINO TRANSFERASE 54 U/L (14-36); BILIRUBIN,DIRECT 0.6 mg/dL (0.0-0.4); CARBON DIOXIDE 18 mmol/L (22-30); CHLORIDE 107 mmol/L (98-107); CREATININE RESULT 0.47 mg/dL (0.52-1.25); GLUCOSE 79 mg/dL (75-110); LDH 287 U/L (313-618); LIPASE 819.9 U/L (23-300); POTASSIUM 3.1 mmol/L (3.6-5.0); SODIUM 136.2 mmol/L (137-145); TOTAL PROTEIN 7.1 g/dL (6.3-8.2); URIC ACID 5.2 mg/dL (2.5-6.2)
[2017-04-16 18:56] LABS: BLOOD UREA NITROGEN < 2 mg/dL (7-20)
[2017-04-16 19:14] LABS: URINE PROTEIN 55.6 mg/dL (<12)
[2017-04-16] MEDS ORDERED: POTASSI CL 20 MEQ/50 ML RIDER 20 MEQ/50 ML RTUPB IV SCH (19:30)
[2017-04-16 20:01] LABS: URINE CREATININE 142.1 mg/dL (16-327)
[2017-04-17] MEDS ORDERED: POTASSI CL 20 MEQ/50 ML RIDER 20 MEQ/50 ML RTUPB IV ONE
[2017-04-17] MEDS: DEXTROSE 5%-NORMAL SALINE 1,000 ML IV PRN ×4 (06:06→20:25)
[2017-04-17] MEDS: FAMOTIDINE 20 MG TABLET PO SCH ×2 (09:50→21:20)
[2017-04-17 10:13] LABS: ABSOLUTE LYMPHOCYTES (AUTO) 0.9 10^3/uL (0.5-4.7); ABSOLUTE MONOCYTES (AUTO) 0.5 10^3/uL (0.1-1.4); ABSOLUTE NEUT (AUTO) 2.4 10^3/uL (1.7-8.2); BASOPHILS % (AUTO) 0.7 % (0-2); EOSINOPHILS % (AUTO) 0.6 % (0-6); HEMATOCRIT 31.3 % (36.0-47.0); HEMOGLOBIN 10.7 g/dL (12.0-15.5); HGB HCT DIFFERENCE 0.8; LYMPHOCYTES % (AUTO) 23.4 % (13-45); MEAN CORPUSCULAR HEMOGLOBIN 28.9 pg (27.0-33.4); MEAN CORPUSCULAR HGB CONC 34.3 g/dL (32.0-36.0); MEAN CORPUSCULAR VOLUME 84 fl (80-97); MONOCYTES % (AUTO) 12.5 % (3-13); RED BLOOD COUNT 3.72 10^6/uL (3.72-5.28); SEGMENTED NEUTROPHILS % (AUTO) 62.8 % (42-78); WHITE BLOOD COUNT 3.8 10^3/uL (4.0-10.5)
[2017-04-17 10:27] LABS: ALANINE AMINOTRANSFERASE 77 U/L (9-52); ALBUMIN 2.8 g/dL (3.5-5.0); ALKALINE PHOSPHATASE 105 U/L (38-126); AMYLASE 247 U/L (30-110); ANION GAP 10 (5-19); ASPARTATE AMINO TRANSFERASE 43 U/L (14-36); BILIRUBIN,DIRECT 0.5 mg/dL (0.0-0.4); BILIRUBIN,TOTAL 0.7 mg/dL (0.2-1.3); CALCIUM 8.6 mg/dL (8.4-10.2); CARBON DIOXIDE 17 mmol/L (22-30); CHLORIDE 111 mmol/L (98-107); GLUCOSE 122 mg/dL (75-110); LDH 266 U/L (313-618); SODIUM 137.7 mmol/L (137-145); URIC ACID 3.7 mg/dL (2.5-6.2)
[2017-04-17 10:30] LABS: BLOOD UREA NITROGEN < 2 mg/dL (7-20)
[2017-04-17] MEDS ORDERED: DEXTROSE 5%-LACTATED RINGERS 1,000 ML IV PRN (11:08)
--- NOTE | 2017-04-17 11:50 | PDOC PROGRESS REPORT ---
Subjective Progress Note for:: 04/17/17 Subjective:: several episodes of emesis last night but no nausea or emesis since. She reports epigastric pain is resolved. is in room and very confrontational regarding her care. We reviewed her diagnosis including mild pancreatitis and dehydration and need for recussitation. Dr. Hopkins in room to assist with discussion with pt and as well re; Need for continued recussitation and hospitalization but that patient is improving. She was not very verbal during visit (more verbal at admission when not present) Physical Exam - Physical Exam Vital Signs: Temp Pulse Resp BP Pulse Ox 98.7 F 84 14 108/60 98 04/17/17 10:05 04/17/17 10:05 04/17/17 10:05 04/17/17 10:05 04/17/17 10:05 Intake & Output 04/16/17 04/17/17 04/18/17 06:59 06:59 06:59 Intake Total 1310 1000 Output Total 700 1450 Balance -700 -140 1000 Weight 82.1 kg General appearance: PRESENT: no acute distress, well-developed, well-nourished Head exam: PRESENT: atraumatic, normocephalic Respiratory exam: PRESENT: clear to auscultation fannie, symmetrical, unlabored. ABSENT: tachypnea Cardiovascular exam: PRESENT: RRR. ABSENT: diastolic murmur, rubs, systolic murmur Vascular exam: PRESENT: normal capillary refill GI/Abdominal exam: PRESENT: normal bowel sounds, soft. ABSENT: distended, guarding, mass, organolmegaly, rebound, tenderness Rectal exam: PRESENT: deferred Extremities exam: PRESENT: full ROM. ABSENT: calf tenderness, clubbing, pedal edema Neurological exam: PRESENT: alert, awake, oriented to person, oriented to place , oriented to time, oriented to situation, CN II-XII grossly intact. ABSENT: motor sensory deficit Psychiatric exam: PRESENT: appropriate affect, normal mood. ABSENT: homicidal ideation, suicidal ideation Skin exam: PRESENT: dry, intact, warm. ABSENT: cyanosis, rash Result Laboratory Results: 04/17/17 09:17 04/17/17 09:17 04/16/17 04/16/17 04/16/17 18:15 18:15 18:18 WBC 4.6 RBC 4.23 Hgb 12.2 Hct 36.5 MCV 86 MCH 28.7 MCHC 33.3 RDW 12.6 Plt Count 245 Seg Neutrophils % 57.2 Lymphocytes % 28.5 Monocytes % 12.7 Eosinophils % 0.5 Basophils % 1.1 Absolute Neutrophils 2.6 Absolute Lymphocytes 1.3 Absolute Monocytes 0.6 Absolute Eosinophils 0.0 Absolute Basophils 0.0 Sodium 136.2 L Potassium 3.1 L Chloride 107 Carbon Dioxide 18 L Anion Gap 11 BUN < 2 L Creatinine 0.47 L Est GFR ( Amer) > 60 Est GFR (Non-Af Amer) > 60 Glucose 79 Uric Acid 5.2 Calcium 9.0 Total Bilirubin 1.0 AST 54 H ALT 84 H Alkaline Phosphatase 121 Total Protein 7.1 Albumin 3.5 Amylase 259 H Lipase 819.9 H Ur 24 Hour Volume 920 Ur Total Protein 24 Hr 512 H 04/16/17 04/17/17 04/17/17 18:18 09:17 09:17 WBC 3.8 L RBC 3.72 Hgb 10.7 L Hct 31.3 L MCV 84 MCH 28.9 MCHC 34.3 RDW 13.0 Plt Count 233 Seg Neutrophils % 62.8 Lymphocytes % 23.4 Monocytes % 12.5 Eosinophils % 0.6 Basophils % 0.7 Absolute Neutrophils 2.4 Absolute Lymphocytes 0.9 Absolute Monocytes 0.5 Absolute Eosinophils 0.0 Absolute Basophils 0.0 Sodium 137.7 Potassium 3.0 L* Chloride 111 H Carbon Dioxide 17 L Anion Gap 10 BUN < 2 L Creatinine 0.40 L Est GFR ( Amer) > 60 Est GFR (Non-Af Amer) > 60 Glucose 122 H Uric Acid 3.7 Calcium 8.6 Total Bilirubin 0.7 AST 43 H ALT 77 H Alkaline Phosphatase 105 Total Protein 6.0 L Albumin 2.8 L Amylase 247 H Lipase 722.0 H Ur 24 Hour Volume 920 Ur Total Protein 24 Hr 04/15/17 16:59 Clean Catch Midstream Urine Culture - Final NO GROWTH 2 DAYS Impressions: Abdomen Ultrasound 04/15/17 00:00 IMPRESSION: There may be a some sludge in the gallbladder, the study was otherwise unremarkable. Assessment & Plan - Diagnosis (1) Pancreatitis Qualifiers: Chronicity: acute Pancreatitis type: other Is this a current diagnosis for this admission?: YesPlan: Pt with improved symptoms and epigastric pain since evaluated on Tuesday evening. We reviewed continued IVF and need for continued rehydration. We reviewed that dehydration/pancreatitis is slow process to recover and needs to be accomplished in stages. Reviewed IVF with RN. Pt has been recieving 250ml/ hr since yesterday. I/O not recorded correctly - but should be at least 3000ml per review of records but should have been closer to 5000ml. (2) Dehydration Is this a current diagnosis for this admission?: YesPlan: Banana Bag and IVF ordered. IVF adjusted and daily weight and strict I/O requested. Banana bag to run at 250ml/hr, IVF D5NS to run at 250ml/hr. Will try clear liquids today. (3) Hyperemesis gravidarum Is this a current diagnosis for this admission?: YesPlan: Meds reviewed and IVF fluids reviewed. Cont strict I/O. Cont daily labs. reviewed if needed may need PICC line for continued hydration in the future HE etc resolve. Of note has refused admission for pt after multiple ER visits and even after documented weight loss. Was admitted last weekend with HE and now with pancreatitis/inflammation and Dehydration. still wishes to terminate . D/w pt who does NOT want to terminate and wishes to continue with treatment. states he is going to sign her out AMA and take her to [place] to terminate. DC/planning consult ordered (4) Hypokalemia Is this a current diagnosis for this admission?: YesPlan: pt recieved 2 K riders yesterday with sill low potassium - 2 ordered for today. Na was low yesterday and IVF adjusted yesterday with improvement in Na today. (5) Protein in urine Qualifiers: Proteinuria type: other Qualified Code(s): R80.8 - Other proteinuria Is this a current diagnosis for this admission?: YesPlan: Pt with reported chronic HTN although normal BPs in hospital. 24 hr UTP elevated which may also be related to severe dehydration. Nephrology consult placed yesterday. - Time Time Spent with patient: 35 or more minutes Critical Time spent with patient: Less than 15 minutes Medications reviewed and adjusted accordingly: Yes Anticipated discharge: Home Within: within 72 hours Disposition: Home when improvement stable for discharge - Inpatient Certification Based on my medical assessment, after consideration of the patient's comorbidities, presenting symptoms, or acuity I expect that the services needed warrant INPATIENT care.: Yes I certify that my determination is in accordance with my understanding of Medicare's requirements for reasonable and necessary INPATIENT services [42 CFR 412.3e].: Yes Medical Necessity: Significant Comorbidiites Make Outpatient Treatment Too Risky , Need Close Monitoring Due to Risk of Patient Decompensation, Need For IV Fluids Post Hospital Care: D/C 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
--- NOTE | 2017-04-17 12:48 | PDOC PROGRESS REPORT ---
Subjective Progress Note for:: 04/17/17 Subjective:: Patient has no complaints. She states her urine is becoming clear. Physical Exam Vital Signs: Temp Pulse Resp BP Pulse Ox 98.7 F 84 14 108/60 98 04/17/17 10:05 04/17/17 10:05 04/17/17 10:05 04/17/17 10:05 04/17/17 10:05 Intake & Output 04/16/17 04/17/17 04/18/17 06:59 06:59 06:59 Intake Total 1310 1000 Output Total 700 1450 Balance -700 -140 1000 Weight 82.1 kg General appearance: PRESENT: no acute distress, other - Affect flat. GI/Abdominal exam: PRESENT: other - Soft, nontender no peritoneal signs no rigidity. Results Laboratory Results: 04/17/17 09:17 04/17/17 09:17 04/16/17 04/16/17 04/16/17 18:15 18:15 18:18 WBC 4.6 RBC 4.23 Hgb 12.2 Hct 36.5 MCV 86 MCH 28.7 MCHC 33.3 RDW 12.6 Plt Count 245 Seg Neutrophils % 57.2 Lymphocytes % 28.5 Monocytes % 12.7 Eosinophils % 0.5 Basophils % 1.1 Absolute Neutrophils 2.6 Absolute Lymphocytes 1.3 Absolute Monocytes 0.6 Absolute Eosinophils 0.0 Absolute Basophils 0.0 Sodium 136.2 L Potassium 3.1 L Chloride 107 Carbon Dioxide 18 L Anion Gap 11 BUN < 2 L Creatinine 0.47 L Est GFR ( Amer) > 60 Est GFR (Non-Af Amer) > 60 Glucose 79 Uric Acid 5.2 Calcium 9.0 Total Bilirubin 1.0 AST 54 H ALT 84 H Alkaline Phosphatase 121 Total Protein 7.1 Albumin 3.5 Amylase 259 H Lipase 819.9 H Ur 24 Hour Volume 920 Ur Total Protein 24 Hr 512 H 04/16/17 04/17/17 04/17/17 18:18 09:17 09:17 WBC 3.8 L RBC 3.72 Hgb 10.7 L Hct 31.3 L MCV 84 MCH 28.9 MCHC 34.3 RDW 13.0 Plt Count 233 Seg Neutrophils % 62.8 Lymphocytes % 23.4 Monocytes % 12.5 Eosinophils % 0.6 Basophils % 0.7 Absolute Neutrophils 2.4 Absolute Lymphocytes 0.9 Absolute Monocytes 0.5 Absolute Eosinophils 0.0 Absolute Basophils 0.0 Sodium 137.7 Potassium 3.0 L* Chloride 111 H Carbon Dioxide 17 L Anion Gap 10 BUN < 2 L Creatinine 0.40 L Est GFR ( Amer) > 60 Est GFR (Non-Af Amer) > 60 Glucose 122 H Uric Acid 3.7 Calcium 8.6 Total Bilirubin 0.7 AST 43 H ALT 77 H Alkaline Phosphatase 105 Total Protein 6.0 L Albumin 2.8 L Amylase 247 H Lipase 722.0 H Ur 24 Hour Volume 920 Ur Total Protein 24 Hr 04/15/17 16:59 Clean Catch Midstream Urine Culture - Final NO GROWTH 2 DAYS Impressions: Abdomen Ultrasound 04/15/17 00:00 IMPRESSION: There may be a some sludge in the gallbladder, the study was otherwise unremarkable. Assessment & Plan - Diagnosis (1) Pancreatitis Qualifiers: Chronicity: acute Pancreatitis type: other Is this a current diagnosis for this admission?: YesPlan: 1. Clinically stable without any evidence of deterioration in patient's abdominal complaints or abdominal exam. The abnormal lipase and amylase are stable not rising. I do not believe the patient requires further investigation or intervention regarding her pancreas or her gallbladder at this time. 2. I believe the patient's principal problem now is persisting under resuscitation due to dehydration. I have discussed this with Dr. Boyd and we agree additional fluid resuscitation and correction of electrolyte abnormalities needs to continue. I was present in the room during discussion between Dr. Boyd, the patient and patient's . Because we do not know exactly the etiology of patient' s underlying hyperemesis , other than , and generalized failure to thrive, the is somewhat frustrated with the recurrent need to bring the patient to the hospital, get treated etc. Reassurance was provided. As of this moment, I believe the patient should continue to receive the fluids and electrolyte replacement. Surgery will be available on an as-needed basis.
[2017-04-17] MEDS: POTASSI CL 20 MEQ/50 ML RIDER 20 MEQ/50 ML RTUPB IV SCH ×2 (13:29→14:42)
[2017-04-17] MEDS ORDERED: PROMETHAZINE HCL INJ 25 MG/1 ML VIAL ONE (17:19)
[2017-04-17] MEDS ORDERED: PROMETHAZINE HCL INJ 25 MG/1 ML VIAL IV PRN (17:29)
[2017-04-17] MEDS ORDERED: PROMETHAZINE HCL 25 MG TABLET PO PRN (17:30)
[2017-04-17] MEDS ORDERED: NORMAL SALINE 1000 ML 1,000 ML with THIAMINE HCL 100 MG, MVI, ADULT NO.1 WITH VIT K 10 ... IV SCH ×4 (18:00)
[2017-04-18] MEDS: DEXTROSE 5%-NORMAL SALINE 1,000 ML IV PRN ×2 (00:15→04:45)
[2017-04-18 06:55] LABS: ALANINE AMINOTRANSFERASE 68 U/L (9-52); ALBUMIN 2.6 g/dL (3.5-5.0); ALKALINE PHOSPHATASE 98 U/L (38-126); AMYLASE 160 U/L (30-110); ANION GAP 9 (5-19); ASPARTATE AMINO TRANSFERASE 38 U/L (14-36); BILIRUBIN,DIRECT 0.4 mg/dL (0.0-0.4); BILIRUBIN,TOTAL 0.5 mg/dL (0.2-1.3); CALCIUM 8.3 mg/dL (8.4-10.2); CARBON DIOXIDE 20 mmol/L (22-30); CHLORIDE 110 mmol/L (98-107); CREATININE RESULT 0.37 mg/dL (0.52-1.25); GLUCOSE 104 mg/dL (75-110); SODIUM 138.5 mmol/L (137-145); TOTAL PROTEIN 5.6 g/dL (6.3-8.2); URIC ACID 2.1 mg/dL (2.5-6.2)
[2017-04-18 06:56] LABS: BLOOD UREA NITROGEN < 2 mg/dL (7-20)
[2017-04-18 06:58] LABS: POTASSIUM 2.9 mmol/L (3.6-5.0)
[2017-04-18] MEDS ORDERED: POTASSIUM CHLORIDE 20 MEQ/50 ML RTU IV SCH (08:00)
[2017-04-18] MEDS: FAMOTIDINE 20 MG TABLET PO SCH (09:39)
[2017-04-18] MEDS: POTASSI CL 20 MEQ/D5-1/2NS 1L 1000 ML IV PRN ×2 (12:10→19:16)
[2017-04-18] MEDS ORDERED: NORMAL SALINE 10 ML SDV (AFTER EACH USE) IV PRN (12:12)
[2017-04-18] MEDS ORDERED: DEXTROSE 50%-WATER SYRINGE 12.5 GM/25 ML DOSE IV PRN (12:21)
[2017-04-18] MEDS ORDERED: DEXTROSE 10%-WATER 1,000 ML IV PRN (12:21)
[2017-04-18] MEDS ORDERED: GLUCAGON,HUMAN RECOMB 1 MG INJ IM PRN (12:21)
[2017-04-18] MEDS ORDERED: DEXTROSE 50%-WATER SYRINGE 25 GM/50 ML DOSE IV PRN (12:21)
[2017-04-18] MEDS ORDERED: DEXTROSE 40% GEL 15 GM TUBE X 2 PO PRN (12:21)
[2017-04-18] MEDS ORDERED: DEXTROSE 40% GEL 15 GM TUBE PO PRN (12:21)
--- NOTE | 2017-04-18 13:16 | RADIOLOGY REPORT (SQ) ---
EXAM DESCRIPTION: PICC INSERTION; FLUORO/CV PLACEMENT; U/S GUIDE FOR VASCULAR ACCESS COMPLETED DATE/TIME: 04/18/2017 11:35 am REASON FOR STUDY: PICC LINE/ TPN; TPN COMPARISON: Two-view chest 11/23/2010 FLUOROSCOPY TIME: 3 seconds 1 ultrasound and 2 C-arm images saved to PACS. TECHNIQUE: Fluoroscopic and ultrasound guided PICC placement. LIMITATIONS: None. PROCEDURE: After written consent and assessment were obtained, the patient was brought into the fluo roscopy room and place supine on the table. Ultrasound was used on the patient's left arm for PICC a ccess. The left arm was prepped and draped in a sterile fashion along with the ultrasound probe. The entry site was anesthetized with 3.5 mL of 1% lidocaine. A 21 gauge 7 cm needle was advanced through the skin and into the left basilic vein under live ultrasound guidance. An ultrasound image was save d to PACS confirming access site. A .018 guide wire was then inserted through the needle and into th e venous system. The needle was the removed and an 11 blade scalpel was used to make a 1cm skin incis ion. A 5 fr peel-away sheath was advanced over the wire and into the venous system. A measurement wa s then made using the existing wire and live fluoroscopic guidance. The wire was then removed and the trimmed. The PICC was advanced through the peel-away sheath and into the venous system. The peel-rajendra y sheath was removed and the catheter was adhered to the patients arm with a stat lock. The catheter was then aspirated and flushed and a sterile bandage was placed over the access site. A fluoroscopic spot image was saved to PACS confirming the catheter tip within the superior vena cava. THE PATIENT'S ABDOMEN AND PELVIS WAS DOUBLE SHIELDED WITH LEAD APRONS FOR THE PROCEDURE IMPRESSION: SUCCESSFUL PLACEMENT OF A 5 FR DUAL LUMEN 37 CM PICC IN THE LEFT BASILIC VEIN. COMMENT: Patient medication list reviewed: Yes- Quality ID# [id number]:Eligible professional attests to doc umenting in the medical record they obtained, updated, or reviewed the patient's current medications. . Quality ID 145: Final reports for procedures using fluoroscopy that document radiation exposure kal andrew, or exposure time and number of fluorographic images (if radiation exposure indices are not avail able) Quality ID #76: The patient was prepped and draped using maximum sterile barrier technique including cap, mask, sterile gown, sterile gloves, a large sterile sheet, hand hygiene, and 2% Chlorhexidine fo r cutaneous antisepsis. When ultrasound is used, sterile ultrasound techniques are followed requiring sterile gel and sterile probes. TECHNICAL DOCUMENTATION: JOB ID: [id number] [employer]- All Rights Reserved
[2017-04-18] MEDS ORDERED: POTASSIUM CHLORIDE 20 MEQ/50 ML RTU IV ONE (15:00)
[2017-04-18] MEDS ORDERED: FAT EMULSIONS 250 ML IV SCH (18:00)
[2017-04-18] MEDS: AMINO ACIDS 5%/D25W 1,000 ML IV PRN (18:06)
--- NOTE | 2017-04-18 19:52 | PDOC PROGRESS REPORT ---
Subjective Progress Note for:: 04/18/17 Subjective:: Pt had emesis once yesterday but tolerating some clears. Notes abd pain resolved. Occasional nausea. No vag bleeding. Physical Exam - Physical Exam Vital Signs: Temp Pulse Resp BP Pulse Ox 98.7 F 79 16 129/78 H 100 04/18/17 15:25 04/18/17 15:25 04/18/17 15:25 04/18/17 15:25 04/18/17 15:25 Intake & Output 04/17/17 04/18/17 04/19/17 06:59 06:59 06:59 Intake Total 1310 6715 2000 Output Total 1450 4400 2600 Balance -140 2315 -600 Weight 87.9 kg General appearance: PRESENT: no acute distress GI/Abdominal exam: PRESENT: normal bowel sounds, soft. ABSENT: distended, guarding, mass, organolmegaly, rebound, tenderness Result Laboratory Results: 04/17/17 09:17 04/18/17 06:14 04/18/17 04/18/17 06:14 06:14 Sodium 138.5 Potassium 2.9 L* Chloride 110 H Carbon Dioxide 20 L Anion Gap 9 BUN < 2 L Creatinine 0.37 L Est GFR ( Amer) > 60 Est GFR (Non-Af Amer) > 60 Glucose 104 Uric Acid 2.1 L Calcium 8.3 L Total Bilirubin 0.5 AST 38 H ALT 68 H Alkaline Phosphatase 98 Total Protein 5.6 L Albumin 2.6 L Triglycerides 93 Amylase 160 H Lipase 425.0 H Impressions: Abdomen Ultrasound 04/15/17 00:00 IMPRESSION: There may be a some sludge in the gallbladder, the study was otherwise unremarkable. Guidance Fluoroscopy 04/18/17 00:00 IMPRESSION: SUCCESSFUL PLACEMENT OF A 5 FR DUAL LUMEN 37 CM PICC IN THE LEFT BASILIC VEIN. Interventional Vascular Procedure 04/18/17 00:00 IMPRESSION: SUCCESSFUL PLACEMENT OF A 5 FR DUAL LUMEN 37 CM PICC IN THE LEFT BASILIC VEIN. PICC Line Insertion 04/18/17 00:00 IMPRESSION: SUCCESSFUL PLACEMENT OF A 5 FR DUAL LUMEN 37 CM PICC IN THE LEFT BASILIC VEIN. Assessment & Plan - Diagnosis (1) Hypokalemia Is this a current diagnosis for this admission?: Yes (2) Pancreatitis Qualifiers: Chronicity: acute Pancreatitis type: other Is this a current diagnosis for this admission?: Yes (3) Hyperemesis gravidarum Is this a current diagnosis for this admission?: Yes - Plan Summary Plan Summary: Discussed PICC line which may be used for ivfs and tpn until pt able to maintain nutrition and hydration orally. Will rplete potassium. Will follow daily lytes and amylase, lipase....consider advancing diet to bland if labs cont to improve. Cont antimetices and H2 deb.
[2017-04-19] MEDS: NORMAL SALINE 10 ML SDV (SCHEDULED) IV SCH ×3 (00:20→21:18)
[2017-04-19] MEDS: POTASSI CL 20 MEQ/D5-1/2NS 1L 1000 ML IV PRN ×2 (06:05→16:37)
[2017-04-19 06:27] LABS: LIPASE 309.9 U/L (23-300)
[2017-04-19 06:49] LABS: ALANINE AMINOTRANSFERASE 59 U/L (9-52); ALBUMIN 2.9 g/dL (3.5-5.0); ALKALINE PHOSPHATASE 105 U/L (38-126); ANION GAP 8 (5-19); ASPARTATE AMINO TRANSFERASE 35 U/L (14-36); BILIRUBIN,DIRECT 0.3 mg/dL (0.0-0.4); BILIRUBIN,TOTAL 0.4 mg/dL (0.2-1.3); CALCIUM 8.9 mg/dL (8.4-10.2); CARBON DIOXIDE 23 mmol/L (22-30); CHLORIDE 106 mmol/L (98-107); GLUCOSE 89 mg/dL (75-110); PHOSPHORUS 3.3 mg/dL (2.5-4.5); POTASSIUM 3.3 mmol/L (3.6-5.0); SODIUM 137.2 mmol/L (137-145); TOTAL PROTEIN 5.9 g/dL (6.3-8.2)
[2017-04-19 06:56] LABS: PREALBUMIN 11.6 mg/dL (17.6-36.0)
[2017-04-19 07:00] LABS: BLOOD UREA NITROGEN < 2 mg/dL (7-20)
[2017-04-19] MEDS: AMINO ACIDS 5%/D25W 1,000 ML IV PRN (19:32)
[2017-04-19] MEDS: INSULIN REG, HUMAN 100 UNIT/ML 3 ML VIAL (PYX) SUBCUT PRN (23:46)
[2017-04-20] MEDS: POTASSI CL 20 MEQ/D5-1/2NS 1L 1000 ML IV PRN ×3 (04:03→23:37)
[2017-04-20 07:06] LABS: ALANINE AMINOTRANSFERASE 66 U/L (9-52); ALBUMIN 2.7 g/dL (3.5-5.0); ALKALINE PHOSPHATASE 104 U/L (38-126); ANION GAP 8 (5-19); ASPARTATE AMINO TRANSFERASE 45 U/L (14-36); BILIRUBIN,DIRECT 0.3 mg/dL (0.0-0.4); BILIRUBIN,TOTAL 0.4 mg/dL (0.2-1.3); BLOOD UREA NITROGEN 3 mg/dL (7-20); CALCIUM 8.6 mg/dL (8.4-10.2); CARBON DIOXIDE 24 mmol/L (22-30); CHLORIDE 105 mmol/L (98-107); GLUCOSE 96 mg/dL (75-110); MAGNESIUM 1.7 mg/dL (1.6-2.3); PHOSPHORUS 3.8 mg/dL (2.5-4.5); POTASSIUM 3.8 mmol/L (3.6-5.0); SODIUM 136.6 mmol/L (137-145); TOTAL PROTEIN 5.4 g/dL (6.3-8.2)
[2017-04-20 07:13] LABS: PREALBUMIN 10.9 mg/dL (17.6-36.0)
--- NOTE | 2017-04-20 07:37 | PDOC PROGRESS REPORT ---
Subjective Progress Note for:: 04/19/17 Subjective:: no nausea or emesis for several days. She is tolerating the clear liquid diet but is not eating it since it does not taste good - we reviewed need to eat clear liquid diet. She reports epigastric pain is resolved. She overall feels better. Physical Exam - Physical Exam Vital Signs: Temp Pulse Resp BP Pulse Ox 98.3 F 94 14 118/79 100 04/19/17 11:37 04/19/17 11:37 04/19/17 11:37 04/19/17 11:37 04/19/17 11:37 Intake & Output 04/18/17 04/19/17 04/20/17 06:59 06:59 06:59 Intake Total 6715 3890 540 Output Total 4400 5150 Balance 2315 -1260 540 Weight 87.9 kg 86.2 kg General appearance: PRESENT: no acute distress, well-developed, well-nourished Head exam: PRESENT: atraumatic, normocephalic Neck exam: PRESENT: full ROM. ABSENT: carotid bruit, JVD, lymphadenopathy, thyromegaly Respiratory exam: PRESENT: clear to auscultation fannie, symmetrical, unlabored Cardiovascular exam: PRESENT: RRR. ABSENT: diastolic murmur, rubs, systolic murmur Pulses: PRESENT: normal dorsalis pedis pul, +2 pedal pulses bilateral Vascular exam: PRESENT: normal capillary refill GI/Abdominal exam: PRESENT: normal bowel sounds, soft. ABSENT: distended, guarding, mass, organolmegaly, rebound, tenderness Rectal exam: PRESENT: deferred Extremities exam: PRESENT: full ROM. ABSENT: calf tenderness, clubbing, pedal edema Neurological exam: PRESENT: alert, awake, oriented to person, oriented to place , oriented to time, oriented to situation, CN II-XII grossly intact. ABSENT: motor sensory deficit Psychiatric exam: PRESENT: appropriate affect, normal mood. ABSENT: homicidal ideation, suicidal ideation Skin exam: PRESENT: dry, intact, warm. ABSENT: cyanosis, rash Result Laboratory Results: 04/17/17 09:17 04/19/17 05:50 04/19/17 04/19/17 05:50 05:50 Sodium 137.2 Potassium 3.3 L Chloride 106 Carbon Dioxide 23 Anion Gap 8 BUN < 2 L Creatinine 0.40 L Est GFR ( Amer) > 60 Est GFR (Non-Af Amer) > 60 Glucose 89 Calcium 8.9 Phosphorus 3.3 Total Bilirubin 0.4 AST 35 ALT 59 H Alkaline Phosphatase 105 Total Protein 5.9 L Albumin 2.9 L Prealbumin 11.6 L Amylase 113 H Lipase 309.9 H Impressions: Abdomen Ultrasound 04/15/17 00:00 IMPRESSION: There may be a some sludge in the gallbladder, the study was otherwise unremarkable. Guidance Fluoroscopy 04/18/17 00:00 IMPRESSION: SUCCESSFUL PLACEMENT OF A 5 FR DUAL LUMEN 37 CM PICC IN THE LEFT BASILIC VEIN. Interventional Vascular Procedure 04/18/17 00:00 IMPRESSION: SUCCESSFUL PLACEMENT OF A 5 FR DUAL LUMEN 37 CM PICC IN THE LEFT BASILIC VEIN. PICC Line Insertion 04/18/17 00:00 IMPRESSION: SUCCESSFUL PLACEMENT OF A 5 FR DUAL LUMEN 37 CM PICC IN THE LEFT BASILIC VEIN. Assessment & Plan - Diagnosis (1) Pancreatitis Qualifiers: Chronicity: acute Pancreatitis type: other Is this a current diagnosis for this admission?: YesPlan: Pt with improved symptoms and epigastric pain since evaluated on Tuesday evening. We reviewed continued IVF and need for continued rehydration. We reviewed that dehydration/pancreatitis is slow process to recover and needs to be accomplished in stages. Reviewed IVF with RN. Pt has been recieving 150ml/ hr since yesterday. TPN is running at 55ml/hr - increased from 45ml/hr. She is doing well. (2) Dehydration Is this a current diagnosis for this admission?: YesPlan: Banana Bag and IVF ordered. IVF adjusted and daily weight and strict I/O requested. IVF D5NS to run at 150ml/hr. Cont clear liquid diet. (3) Hyperemesis gravidarum Is this a current diagnosis for this admission?: YesPlan: Meds reviewed and IVF fluids reviewed. Cont strict I/O. Cont daily labs. PICC line in place. (4) Hypokalemia Is this a current diagnosis for this admission?: YesPlan: Potassium now improved with TPN (5) Protein in urine Qualifiers: Proteinuria type: other Qualified Code(s): R80.8 - Other proteinuria Is this a current diagnosis for this admission?: YesPlan: Pt with reported chronic HTN although normal BPs in hospital. 24 hr UTP elevated which may also be related to severe dehydration. Nephrology consult placed yesterday. - Time Time Spent with patient: 15-24 minutes Critical Time spent with patient: Less than 15 minutes Medications reviewed and adjusted accordingly: Yes Anticipated discharge: Home Within: within 72 hours, Other - Inpatient Certification Based on my medical assessment, after consideration of the patient's comorbidities, presenting symptoms, or acuity I expect that the services needed warrant INPATIENT care.: Yes I certify that my determination is in accordance with my understanding of Medicare's requirements for reasonable and necessary INPATIENT services [42 CFR 412.3e].: Yes Medical Necessity: Significant Comorbidiites Make Outpatient Treatment Too Risky , Need Close Monitoring Due to Risk of Patient Decompensation, Need For IV Fluids Post Hospital Care: D/C 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
[2017-04-20] MEDS: NORMAL SALINE 10 ML SDV (SCHEDULED) IV SCH ×2 (10:49→21:38)
[2017-04-20] MEDS: AMINO ACIDS 5%/D25W 1,000 ML IV PRN (14:34)
[2017-04-20] MEDS: INSULIN REG, HUMAN 100 UNIT/ML 3 ML VIAL (PYX) SUBCUT PRN (23:33)
[2017-04-21 07:30] LABS: ALANINE AMINOTRANSFERASE 93 U/L (9-52); ALBUMIN 2.8 g/dL (3.5-5.0); ALKALINE PHOSPHATASE 110 U/L (38-126); ANION GAP 8 (5-19); ASPARTATE AMINO TRANSFERASE 63 U/L (14-36); BILIRUBIN,DIRECT 0.3 mg/dL (0.0-0.4); BILIRUBIN,TOTAL 0.4 mg/dL (0.2-1.3); BLOOD UREA NITROGEN 3 mg/dL (7-20); CALCIUM 8.7 mg/dL (8.4-10.2); CARBON DIOXIDE 23 mmol/L (22-30); CHLORIDE 105 mmol/L (98-107); CREATININE RESULT 0.39 mg/dL (0.52-1.25); GLUCOSE 128 mg/dL (75-110); PHOSPHORUS 3.7 mg/dL (2.5-4.5); POTASSIUM 3.9 mmol/L (3.6-5.0); SODIUM 135.9 mmol/L (137-145)
[2017-04-21 07:38] LABS: PREALBUMIN 11.8 mg/dL (17.6-36.0)
[2017-04-21] MEDS ORDERED: FAT EMULSIONS 250 ML IV SCH (10:00)
[2017-04-21] MEDS: AMINO ACIDS 5%/D25W 1,000 ML IV PRN (10:01)
[2017-04-21] MEDS: POTASSI CL 20 MEQ/D5-1/2NS 1L 1000 ML IV PRN ×2 (10:10→20:22)
[2017-04-21] MEDS: NORMAL SALINE 10 ML SDV (SCHEDULED) IV SCH ×2 (10:16→21:52)
[2017-04-21] MEDS: INSULIN REG, HUMAN 100 UNIT/ML 3 ML VIAL (PYX) SUBCUT PRN (13:16)
[2017-04-22] MEDS: INSULIN REG, HUMAN 100 UNIT/ML 3 ML VIAL (PYX) SUBCUT PRN (00:09)
--- NOTE | 2017-04-22 04:08 | PDOC PROGRESS REPORT ---
Subjective Progress Note for:: 04/21/17 Subjective:: no nausea or emesis for several days. She is tolerating the bland diet but is not eating a lot of it since it does not taste good - we reviewed need to eat more of the bland diet so that we can advance diet. She reports epigastric pain is resolved. She overall feels better. Physical Exam - Physical Exam Vital Signs: Temp Pulse Resp BP Pulse Ox 98.3 F 100 16 113/67 100 04/21/17 15:18 04/21/17 15:18 04/21/17 15:18 04/21/17 15:18 04/21/17 15:18 Intake & Output 04/20/17 04/21/17 04/22/17 06:59 06:59 06:59 Intake Total 3890 4714 560 Output Total 4300 4650 2800 Balance -410 64 -2240 Weight 86.7 kg 86 kg General appearance: PRESENT: no acute distress, well-developed, well-nourished Head exam: PRESENT: atraumatic, normocephalic Cardiovascular exam: PRESENT: RRR. ABSENT: diastolic murmur, rubs, systolic murmur Pulses: PRESENT: normal dorsalis pedis pul, +2 pedal pulses bilateral GI/Abdominal exam: PRESENT: normal bowel sounds, soft. ABSENT: distended, guarding, mass, organolmegaly, rebound, tenderness Rectal exam: PRESENT: deferred Extremities exam: PRESENT: full ROM. ABSENT: calf tenderness, clubbing, pedal edema Neurological exam: PRESENT: alert, awake, oriented to person, oriented to place , oriented to time, oriented to situation, CN II-XII grossly intact. ABSENT: motor sensory deficit Psychiatric exam: PRESENT: appropriate affect, normal mood. ABSENT: homicidal ideation, suicidal ideation Skin exam: PRESENT: dry, intact, warm. ABSENT: cyanosis, rash Result Laboratory Results: 04/17/17 09:17 04/21/17 06:53 04/21/17 04/21/17 05:55 06:53 Sodium Cancelled 135.9 L Potassium Cancelled 3.9 Chloride Cancelled 105 Carbon Dioxide Cancelled 23 Anion Gap Cancelled 8 BUN Cancelled 3 L Creatinine Cancelled 0.39 L Est GFR ( Amer) Cancelled > 60 Est GFR (Non-Af Amer) Cancelled > 60 Glucose Cancelled 128 H Calcium Cancelled 8.7 Phosphorus Cancelled 3.7 Total Bilirubin Cancelled 0.4 AST Cancelled 63 H ALT Cancelled 93 H Alkaline Phosphatase Cancelled 110 Total Protein Cancelled 6.0 L Albumin Cancelled 2.8 L Prealbumin Cancelled 11.8 L Impressions: Abdomen Ultrasound 04/15/17 00:00 IMPRESSION: There may be a some sludge in the gallbladder, the study was otherwise unremarkable. Guidance Fluoroscopy 04/18/17 00:00 IMPRESSION: SUCCESSFUL PLACEMENT OF A 5 FR DUAL LUMEN 37 CM PICC IN THE LEFT BASILIC VEIN. Interventional Vascular Procedure 04/18/17 00:00 IMPRESSION: SUCCESSFUL PLACEMENT OF A 5 FR DUAL LUMEN 37 CM PICC IN THE LEFT BASILIC VEIN. PICC Line Insertion 04/18/17 00:00 IMPRESSION: SUCCESSFUL PLACEMENT OF A 5 FR DUAL LUMEN 37 CM PICC IN THE LEFT BASILIC VEIN. Assessment & Plan - Diagnosis (1) Pancreatitis Qualifiers: Chronicity: acute Pancreatitis type: other Is this a current diagnosis for this admission?: YesPlan: Pt with improved symptoms and epigastric pain since evaluated on Tuesday evening. We reviewed continued IVF and need for continued rehydration. We reviewed that dehydration/pancreatitis is slow process to recover and needs to be accomplished in stages. Reviewed IVF with RN. Pt has been recieving 150ml/ hr since yesterday. TPN is running at 55ml/hr - plan to decrease if tolerates regular diet. She is doing well. (2) Dehydration Is this a current diagnosis for this admission?: YesPlan: Banana Bag and IVF ordered. IVF adjusted and daily weight and strict I/O requested. IVF D5NS to run at 150ml/hr. Increase diet to regular tomorrow if tolerates dinner. (3) Hyperemesis gravidarum Is this a current diagnosis for this admission?: YesPlan: Meds reviewed and IVF fluids reviewed. Cont strict I/O. Cont daily labs. PICC line in place. (4) Hypokalemia Is this a current diagnosis for this admission?: YesPlan: Potassium now improved with TPN (5) Protein in urine Qualifiers: Proteinuria type: other Qualified Code(s): R80.8 - Other proteinuria Is this a current diagnosis for this admission?: YesPlan: Pt with reported chronic HTN although normal BPs in hospital. 24 hr UTP elevated which may also be related to severe dehydration. Nephrology consult placed yesterday. - Time Time Spent with patient: 15-24 minutes Critical Time spent with patient: Less than 15 minutes Anticipated discharge: Home Within: within 48 hours - Inpatient Certification Based on my medical assessment, after consideration of the patient's comorbidities, presenting symptoms, or acuity I expect that the services needed warrant INPATIENT care.: Yes I certify that my determination is in accordance with my understanding of Medicare's requirements for reasonable and necessary INPATIENT services [42 CFR 412.3e].: Yes Medical Necessity: Need Close Monitoring Due to Risk of Patient Decompensation, Need For IV Fluids Post Hospital Care: D/C Lie Detector Operator Documentation
[2017-04-22] MEDS: AMINO ACIDS 5%/D25W 1,000 ML IV PRN (06:05)
[2017-04-22] MEDS: POTASSI CL 20 MEQ/D5-1/2NS 1L 1000 ML IV PRN ×2 (06:05→16:50)
--- NOTE | 2017-04-22 08:20 | PDOC PROGRESS REPORT ---
Subjective Subjective:: Pt reports feeling better, no n/v for the past 24 hours No vaginal bleeding Physical Exam - Physical Exam Vital Signs: Temp Pulse Resp BP Pulse Ox 98.4 F 107 H 16 104/71 100 04/22/17 04:16 04/22/17 04:16 04/22/17 04:16 04/22/17 04:16 04/22/17 04:16 Intake & Output 04/21/17 04/22/17 04/23/17 06:59 06:59 06:59 Intake Total 4714 2420 Output Total 4650 4200 Balance 64 -1780 Weight 86 kg 86.3 kg General appearance: PRESENT: no acute distress, cooperative, well-developed GI/Abdominal exam: PRESENT: normal bowel sounds - Nontender abdomen, soft Result Laboratory Results: 04/17/17 09:17 04/21/17 06:53 Impressions: Abdomen Ultrasound 04/15/17 00:00 IMPRESSION: There may be a some sludge in the gallbladder, the study was otherwise unremarkable. Guidance Fluoroscopy 04/18/17 00:00 IMPRESSION: SUCCESSFUL PLACEMENT OF A 5 FR DUAL LUMEN 37 CM PICC IN THE LEFT BASILIC VEIN. Interventional Vascular Procedure 04/18/17 00:00 IMPRESSION: SUCCESSFUL PLACEMENT OF A 5 FR DUAL LUMEN 37 CM PICC IN THE LEFT BASILIC VEIN. PICC Line Insertion 04/18/17 00:00 IMPRESSION: SUCCESSFUL PLACEMENT OF A 5 FR DUAL LUMEN 37 CM PICC IN THE LEFT BASILIC VEIN. Assessment & Plan - Diagnosis (1) Pancreatitis Qualifiers: Chronicity: acute Pancreatitis type: other Acute pancreatitis complication: unspecified Qualified Code(s): K85.80 - Other acute pancreatitis without necrosis or infection Is this a current diagnosis for this admission?: Yes (2) Dehydration Is this a current diagnosis for this admission?: Yes (3) Hyperemesis gravidarum Is this a current diagnosis for this admission?: Yes - Time Time Spent with patient: 15-24 minutes Medications reviewed and adjusted accordingly: Yes Anticipated discharge: Home Within: within 24 hours - Will continue to advance diet and wean her TPN, plan d /c home this
[2017-04-22] MEDS: NORMAL SALINE 10 ML SDV (SCHEDULED) IV SCH ×2 (10:30→21:45)
[2017-04-23] MEDS: AMINO ACIDS 5%/D25W 1,000 ML IV PRN (03:33)
[2017-04-23 10:55] LABS: ALANINE AMINOTRANSFERASE 116 U/L (9-52); ALBUMIN 3.6 g/dL (3.5-5.0); ALKALINE PHOSPHATASE 148 U/L (38-126); AMYLASE 260 U/L (30-110); ANION GAP 13 (5-19); ASPARTATE AMINO TRANSFERASE 75 U/L (14-36); BILIRUBIN,DIRECT 0.5 mg/dL (0.0-0.4); BILIRUBIN,TOTAL 0.5 mg/dL (0.2-1.3); BLOOD UREA NITROGEN 7 mg/dL (7-20); CALCIUM 9.5 mg/dL (8.4-10.2); CARBON DIOXIDE 22 mmol/L (22-30); CHLORIDE 101 mmol/L (98-107); CREATININE RESULT 0.48 mg/dL (0.52-1.25); GLUCOSE 141 mg/dL (75-110); LIPASE 517.9 U/L (23-300); POTASSIUM 4.5 mmol/L (3.6-5.0); SODIUM 135.5 mmol/L (137-145); TOTAL PROTEIN 7.3 g/dL (6.3-8.2)
[2017-04-23 12:26] VITALS: BP 112/69
--- NOTE | 2017-04-23 13:04 | PDOC PROGRESS REPORT ---
Subjective Progress Note for:: 04/23/17 Subjective:: Pt had emesis x1 after cheeseburger last night. Otherwise tolerating diet. Denies abd pain, bleeding. Requesting discharge today. Physical Exam - Physical Exam Vital Signs: Temp Pulse Resp BP Pulse Ox 98.2 F 107 H 15 112/69 100 04/23/17 12:22 04/23/17 12:22 04/23/17 12:22 04/23/17 12:22 04/23/17 12:22 Intake & Output 04/22/17 04/23/17 04/24/17 06:59 06:59 06:59 Intake Total 2420 1570 400 Output Total 4200 3150 700 Balance -1780 -1580 -300 Weight 86.3 kg 85.2 kg General appearance: PRESENT: no acute distress GI/Abdominal exam: PRESENT: normal bowel sounds, soft. ABSENT: distended, guarding, mass, organolmegaly, rebound, tenderness Extremities exam: PRESENT: full ROM. ABSENT: calf tenderness, clubbing, pedal edema Result Laboratory Results: 04/17/17 09:17 04/23/17 10:06 04/23/17 10:06 Sodium 135.5 L Potassium 4.5 Chloride 101 Carbon Dioxide 22 Anion Gap 13 BUN 7 Creatinine 0.48 L Est GFR ( Amer) > 60 Est GFR (Non-Af Amer) > 60 Glucose 141 H Calcium 9.5 Total Bilirubin 0.5 AST 75 H ALT 116 H Alkaline Phosphatase 148 H Total Protein 7.3 Albumin 3.6 Amylase 260 H Lipase 517.9 H Impressions: Abdomen Ultrasound 04/15/17 00:00 IMPRESSION: There may be a some sludge in the gallbladder, the study was otherwise unremarkable. Guidance Fluoroscopy 04/18/17 00:00 IMPRESSION: SUCCESSFUL PLACEMENT OF A 5 FR DUAL LUMEN 37 CM PICC IN THE LEFT BASILIC VEIN. Interventional Vascular Procedure 04/18/17 00:00 IMPRESSION: SUCCESSFUL PLACEMENT OF A 5 FR DUAL LUMEN 37 CM PICC IN THE LEFT BASILIC VEIN. PICC Line Insertion 04/18/17 00:00 IMPRESSION: SUCCESSFUL PLACEMENT OF A 5 FR DUAL LUMEN 37 CM PICC IN THE LEFT BASILIC VEIN. Assessment & Plan - Diagnosis (1) Hypokalemia Is this a current diagnosis for this admission?: Yes (2) Pancreatitis Qualifiers: Chronicity: acute Pancreatitis type: other Acute pancreatitis complication: unspecified Qualified Code(s): K85.80 - Other acute pancreatitis without necrosis or infection; K85.8 - Other acute pancreatitis Is this a current diagnosis for this admission?: Yes (3) Hyperemesis gravidarum Plan: will try stopping tpn today and recheck labs in am. Premed meals with scheduled reglan and give PPI daily. Possible d/c home tomorrow if labs improved and pt tolerating po.
[2017-04-23] MEDS: NORMAL SALINE 10 ML SDV (SCHEDULED) IV SCH (13:15)
[2017-04-23] MEDS ORDERED: METOCLOPRAMIDE HCL 10 MG TABLET PO SCH (16:00)
--- NOTE | 2017-04-23 16:43 | DISCHARGE SUMMARY E ---
Discharge Summary NAME: NIDIA VELARDE : 1995 AGE: 21Y ADMITTED: 04/17/2017 DISCHARGED: 04/23/2017 INDICATION FOR ADMISSION: Hyperemesis gravidarum with hypokalemia and pancreatitis. HOSPITAL COURSE: The patient is a 21-year-old female who suffered from nausea and vomiting of who was admitted at 14 weeks and 5 days, estimated gestational age after approximately a 20 pound weight loss. She had lost 4 pounds in the 3 days prior to admission. She was having epigastric pain and inability to tolerate p.o. at the time of admission. She had tried multiple medications for nausea and vomiting of prior to admission and had numerous emergency room visits prior to this admission. On admission she was noted to be dehydration. Her amylase was 320 and lipase was 857. Her AST and ALT were 61 and 98 respectively. General surgery was consulted for assistance with her management. She had a right upper quadrant ultrasound done which did not show gallstones. General surgery felt that it was okay to use her GI tract as tolerated for p.o. intake. During the course of her stay her amylase and lipase initially improved. However, with hydration her serum protein and serum albumin were noted to be very low. Given her weight loss and initial inability to tolerate p.o. a PICC line was placed on 04/18/2017. TPN was then started at 45 mL per hour. As the patient's amylase and lipase improved somewhat she was allowed to continue with diet. However, on the day prior to leaving AM the patient had requested that all IV fluids be turned off. IV fluids were removed but TPN was continued at 45 mL an hour overnight. She had 1 episode of emesis the night before leaving. Her AST and ALT were slightly elevated and her amylase and lipase were 260 and 517 respectively on 04/23. Despite this she refused further hydration and wanted the TPN off. We complied with this request but asked her to stay overnight to repeat labs and assure that she could tolerate p.o. She declined this. She signed [facility] paperwork and her PICC line was removed. She was informed that she may become hypoglycemia due to abrupt cessation of the TPN and to call 911 should she start feeling poorly. She was not given discharge meds as she left against medical advice. She did have some antiemetics at home from before this. DICTATING PHYSICIAN: CHRISTINA APPLE M.D. [id number] PHY#: [id number] ID: [id number] JOB#: [id number] ACCT: [id number] cc:CHRISTINA APPLE M.D. TRI VAZ M.D. >
[2017-04-24] MEDS ORDERED: LANSOPRAZOLE 30 MG TAB.RAP.DR PO SCH (06:00)
== END 2017-04-23 14:02 | disposition left against medical advice (07) | DRG 781 ==
LOC: 2S 10:44 → OBSVTOIN 04-17 12:57
PROVIDERS: ADMIT Student in an Organized Health Care Education/Training Program; ATTEND Student in an Organized Health Care Education/Training Program
PROC: 02HV33Z Insertion of Infusion Device into Superior Vena Cava, Percutaneous Approach (ICD-10-PCS; principal; 2017-04-18)
PROC: B518YZA Fluoroscopy of Superior Vena Cava using Other Contrast, Guidance (ICD-10-PCS; 2017-04-18)
PROC: B548ZZA Ultrasonography of Superior Vena Cava, Guidance (ICD-10-PCS; 2017-04-18)
DX: O21.0 Mild hyperemesis gravidarum (principal); K85.10 Biliary acute pancreatitis without necrosis or infection; O14.92 Unspecified pre-eclampsia, second trimester; O26.892 Other specified pregnancy related conditions, second trimester; O99.212 Obesity complicating pregnancy, second trimester; O13.2 Gestational [pregnancy-induced] hypertension without significant proteinuria, second trimester; E86.0 Dehydration; E87.6 Hypokalemia; Z3A.15 15 weeks gestation of pregnancy
CPT/HCPCS: 36415; 36569; 76705; 76937; 77001; 80053; 81001; 82150; 82570; 82962; 83036; 83615; 83690; 83735; 84100; 84134; 84156; 84439; 84443; 84478; 84481; 84550; 85025; 87086; 93976; G0378; G0379; J1642; J1815; J2550; J3411; J3480; J3490; J7030; J7120

== ENCOUNTER 2017-04-24 03:16 | Emergency (ER) | payer MEDICAID ==
[2017-04-24] MEDS ORDERED: NORMAL SALINE 1000 ML 1,000 ML IV ONE (04:08)
[2017-04-24 05:38] LABS: APPEARANCE,URINE CLEAR; BILIRUBIN,URINE NEGATIVE (NEGATIVE); GLUCOSE, URINE NEGATIVE (NEGATIVE); KETONES,URINE 20 mg/dL (NEGATIVE); LEUKOCYTE ESTERASE,URINE NEGATIVE (NEGATIVE); NITRITE,URINE NEGATIVE (NEGATIVE); PROTEIN,URINE NEGATIVE (NEGATIVE); UROBILINOGEN,URINE NEGATIVE mg/dL (<2.0)
--- NOTE | 2017-04-24 05:52 | ER Document Report ---
ED General - General TRAVEL OUTSIDE OF THE [place] IN LAST 30 DAYS: No - HPI Patient complains to provider of: Vomiting <BRITTANY PRINCE - Last Filed: 04/24/17 05:44> <ELLIOTT SIMMONS - Last Filed: 04/24/17 07:12> - General Chief Complaint: Vomiting Stated Complaint: VOMITING Time Seen by Provider: 04/24/17 04:02 - HPI Notes: Patient coming in for vomiting. Patient recently signed out AGAINST MEDICAL ADVICE from the labor and delivery floor after being diagnosed with hyperemesis gravidarum and pancreatitis. Patient during a time was receiving TPA however according to the patient had family issues before left patient states she vomited 3 times upon arriving home therefore he returned here. According to the pivot nurse patient also signed out AGAINST MEDICAL ADVICE and went to [facility] and was discharged later however patient cannot corroborate the story. Upon my evaluation patient is lying comfortably with the blanket pulled over her head. Patient is asleep easily arousable. Patient denies any abdominal pain fevers chills diarrhea. (BRITTANY PRINCE) - Related Data Allergies/Adverse Reactions: No Known Allergies Allergy (Verified 04/04/17 15:16) Past Medical History - Social History Smoking Status: Unknown if Ever Smoked Family History: Reviewed & Not Pertinent Patient has suicidal ideation: No Patient has homicidal ideation: No - Past Medical History Cardiac Medical History: Reports: Hx Hypertension - current only Denies: Hx Congestive Heart Failure, Hx Heart Attack, Hx Pulmonary Embolism, Hx Heart Murmur Pulmonary Medical History: Denies: Hx Asthma, Hx Bronchitis, Hx COPD, Hx Pneumonia, Hx Sleep Apnea, Hx Tuberculosis Neurological Medical History: Denies: Hx Cerebrovascular Accident, Hx Seizures Endocrine Medical History: Denies: Hx Hyperthyroidism, Hx Hypothyroidism Renal/ Medical History: Denies: Hx End Stage Renal Disease, Hx Kidney Stones, Hx Ovarian Cysts, Hx Peritoneal Dialysis, Hx Pelvic Inflammatory Disease Malignancy Medical History: Denies: Hx Breast Cancer, Hx Cervical Cancer, Hx Ovarian Cancer GI Medical History: Denies: Hx Cirrhosis, Hx Gastroesophageal Reflux Disease, Hx Hiatal Hernia, Hx Ulcer Musculoskeltal Medical History: Denies Hx Arthritis, Denies Hx Fibromyalgia, Denies Hx Multiple Sclerosis Psychiatric Medical History: Denies: Hx Bipolar Disorder, Hx Depression, Hx Post Traumatic Stress Disorder , Hx Schizophrenia Traumatic Medical History: Denies: Hx Fractures Infectious Medical History: Denies: Hx HIV - Immunizations Hx Diphtheria, Pertussis, Tetanus Vaccination: No - unknown <BRITTANY PRINCE - Last Filed: 04/24/17 05:44> Review of Systems - Review of Systems Constitutional: No symptoms reported EENT: No symptoms reported Cardiovascular: No symptoms reported Respiratory: No symptoms reported Gastrointestinal: Nausea, Vomiting Genitourinary: No symptoms reported Female Genitourinary: No symptoms reported Musculoskeletal: No symptoms reported Skin: No symptoms reported Hematologic/Lymphatic: No symptoms reported Neurological/Psychological: No symptoms reported -: Yes All other systems reviewed and negative <BRITTANY PRINCE - Last Filed: 04/24/17 05:44> Physical Exam - Vital signs Interpretation: Normal - General General appearance: Appears well, Alert - HEENT Head: Normocephalic, Atraumatic Eyes: Normal Pupils: PERRL - Respiratory Respiratory status: No respiratory distress Chest status: Nontender Breath sounds: Normal Chest palpation: Normal - Cardiovascular Rhythm: Regular Heart sounds: Normal auscultation Murmur: No - Abdominal Inspection: Normal Distension: No distension Bowel sounds: Normal Tenderness: Nontender Organomegaly: No organomegaly - Back Back: Normal, Nontender - Extremities General upper extremity: Normal inspection, Nontender, Normal color, Normal ROM , Normal temperature General lower extremity: Normal inspection, Nontender, Normal color, Normal ROM , Normal temperature, Normal weight bearing. No: Miranda's sign - Neurological Neuro grossly intact: Yes Cognition: Normal Orientation: AAOx4 [place] Coma Scale Eye Opening: Spontaneous [place] Coma Scale Verbal: Oriented [place] Coma Scale Motor: Obeys Commands [place] Coma Scale Total: 15 Speech: Normal Motor strength normal: LUE, RUE, LLE, RLE Sensory: Normal - Psychological Associated symptoms: Normal affect, Normal mood - Skin Skin Temperature: Warm Skin Moisture: Dry Skin Color: Normal <BRITTANY PRINCE - Last Filed: 04/24/17 05:44> Course - Laboratory Result Diagrams: 04/24/17 05:23 04/24/17 05:23 <BRITTANY PRINCE - Last Filed: 04/24/17 05:44> - Laboratory Result Diagrams: 04/24/17 05:23 04/24/17 05:23 <ELLIOTT SIMMONS - Last Filed: 04/24/17 07:12> - Re-evaluation Re-evalutation: 04/24/17 05:45 Bedside ultrasound showed heart tones at 162. Bedside ultrasound IV access was obtained patient will be given IV fluids. Patient has been here for approximately 2 hours no vomiting and no antiemetics given. Patient does not look to be severely dehydrated currently waiting on lab results with lab results return will consult with [facility] BLENDER as the patient was just recently signed out AGAINST MEDICAL ADVICE from their service for further guidance. (BRITTANY PRINCE) 04/24/17 07:12 Patient has been reevaluated is stable, her lipase level has improved, I spoke with Dr. Tolentino he agrees with discharge After performing a Medical Screening Examination, I estimate there is LOW risk for ACUTE APPENDICITIS, BOWEL OBSTRUCTION, ACUTE CHOLECYSTITIS, PERFORATED DIVERTICULITIS, INCARCERATED HERNIA , PELVIC INFLAMMATORY DISEASE, PERFORATED ULCER, ECTOPIC , or TUBO- OVARIAN ABSCESS, thus I consider the discharge disposition reasonable. Also, there is no evidence or peritonitis, sepsis, or toxicity. I have reevaluated this patient multiple times and no significant life threatening changes are noted. The patient and I have discussed the diagnosis and risks, and we agree with discharging home with close follow-up with the understanding that symptoms and presentations can change. We also discussed returning to the Emergency Department immediately if new or worsening symptoms occur. We have discussed the symptoms which are most concerning (e.g., bloody stool, fever, changing or worsening pain, vomiting) that necessitate immediate return. (ELLIOTT SIMMONS) - Vital Signs Vital signs: Temp Pulse Resp BP Pulse Ox 98.7 F 107 H 20 115/70 97 04/24/17 03:23 04/24/17 03:23 04/24/17 07:00 04/24/17 06:31 04/24/17 07:00 - Laboratory Laboratory results interpreted by me: 04/24/17 04/24/17 04/24/17 05:23 05:23 05:23 Hgb 11.3 L Hct 33.7 L Sodium 134.8 L Creatinine 0.46 L AST 91 H ALT 112 H Alkaline Phosphatase 143 H Albumin 3.2 L Lipase 382.8 H Beta HCG, Quant 97151.00 H Urine Ketones 20 H Procedures - Additional Procedures heart tones Additional Procedures: IV insertion - Bedside ultrasound guided IV was performed the skin was cleaned with alcohol swabs just proximal to the antecubital region a 20-gauge IV was established with good blood return was sample was obtained flush was performed with no signs of extravasation patient tolerated well no complications <BRITTANY PRINCE - Last Filed: 04/24/17 05:44> <ELLIOTT SIMMONS - Last Filed: 04/24/17 07:12> - Additional Procedures heart tones Notes: 04/24/17 05:52 Patient coming in . Bedside ultrasound showed heart tones at 162 with positive movement (BRITTANY PRINCE) Discharge <BRITTANY PRINCE - Last Filed: 04/24/17 05:44> <ELLIOTT SIMMONS - Last Filed: 04/24/17 07:12> - Discharge Clinical Impression: Vomiting complicating Condition: Good Instructions: Vomiting ([facility]) Additional Instructions: For nausea and vomiting during I recomment: Start with 10-12.5 mg of pyridoxine (vitamin B6) three times a day for 2 days. If not fully effective, Increase to 12.5 mg of pyridoxine four times a day for 2 days. If not fully effective, Increase to 25 mg of pyridoxine three times a day for 2 days. If not fully effective, Continue 25 mg pyridoxine 3 times a day, and add 12.5 mg of doxylamine before bedtime each day for 2 days. If not fully effective, Continue 25 mg pyridoxine 3 times a day, and take 12.5 mg of doxylamine twice a day. If not fully effective, Continue 25 mg pyridoxine 3 times a day, and take 12.5 mg of doxylamine three times a day. If not fully effective, Continue 25 mg pyridoxine 3 times a day, and 12.5 mg of doxylamine 3 times a day , while adding Emetrol, one to two tablespoons (15-30 cc) taken once or twice a day as needed. (Emetrol is an [id number] mixture of sugar syrups and phosphoric acid [phosphorylated carbohydrate solution]) that acts by soothing the actual wall of the gastrointestinal tract). If not fully effective, Consult with your doctor. Prescriptions: Metoclopramide HCl [Reglan] 5 mg PO Q6 #20 tablet Referrals: CHRISTINA APPLE MD [Primary Care Provider] - Follow up as needed
[2017-04-24 05:53] LABS: ABSOLUTE LYMPHOCYTES (AUTO) 1.5 10^3/uL (0.5-4.7); ABSOLUTE MONOCYTES (AUTO) 0.7 10^3/uL (0.1-1.4); ABSOLUTE NEUT (AUTO) 5.5 10^3/uL (1.7-8.2); BASOPHILS % (AUTO) 0.5 % (0-2); EOSINOPHILS % (AUTO) 0.3 % (0-6); HEMATOCRIT 33.7 % (36.0-47.0); HEMOGLOBIN 11.3 g/dL (12.0-15.5); HGB HCT DIFFERENCE 0.2; LYMPHOCYTES % (AUTO) 19.4 % (13-45); MEAN CORPUSCULAR HGB CONC 33.5 g/dL (32.0-36.0); MEAN CORPUSCULAR VOLUME 87 fl (80-97); MONOCYTES % (AUTO) 9.1 % (3-13); RED BLOOD COUNT 3.89 10^6/uL (3.72-5.28); SEGMENTED NEUTROPHILS % (AUTO) 70.7 % (42-78); WHITE BLOOD COUNT 7.7 10^3/uL (4.0-10.5)
[2017-04-24 06:02] LABS: ALANINE AMINOTRANSFERASE 112 U/L (9-52); ALBUMIN 3.2 g/dL (3.5-5.0); ALKALINE PHOSPHATASE 143 U/L (38-126); ANION GAP 10 (5-19); ASPARTATE AMINO TRANSFERASE 91 U/L (14-36); BILIRUBIN,DIRECT 0.4 mg/dL (0.0-0.4); BILIRUBIN,TOTAL 0.5 mg/dL (0.2-1.3); BLOOD UREA NITROGEN 7 mg/dL (7-20); CARBON DIOXIDE 22 mmol/L (22-30); CHLORIDE 103 mmol/L (98-107); CREATININE RESULT 0.46 mg/dL (0.52-1.25); GLUCOSE 84 mg/dL (75-110); LIPASE 382.8 U/L (23-300); MAGNESIUM 1.6 mg/dL (1.6-2.3); POTASSIUM 4.3 mmol/L (3.6-5.0); SODIUM 134.8 mmol/L (137-145); TOTAL PROTEIN 6.6 g/dL (6.3-8.2)
[2017-04-24 06:18] LABS: ALCOHOL < 10 mg/dL (NONE DETECTED)
[2017-04-24 09:10] VITALS: BP 118/66
== END 2017-04-24 09:07 | disposition home or self-care (01) ==
LOC: ER 03:16
DX: O21.9 Vomiting of pregnancy, unspecified (principal); Z3A.00 Weeks of gestation of pregnancy not specified; Z87.19 Personal history of other diseases of the digestive system
CPT/HCPCS: 99284; 96360; 36415; 80307; 84702; 83690; 83735; 85025; 80053; 81001; J7030

== ENCOUNTER 2019-08-28 10:38 | Emergency (ER) | payer MEDICAID ==
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
[2019-08-28] MEDS ORDERED: ACETAMINOPHEN 325 MG TABLET PO ONE (10:50)
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
[2019-08-28 11:42] VITALS: BP 102/64
== END 2019-08-28 11:42 | disposition home or self-care (01) ==
LOC: ER 10:38
DX: S39.012A Strain of muscle, fascia and tendon of lower back, initial encounter (principal); R51 Headache; M25.562 Pain in left knee; V89.2XXA Person injured in unspecified motor-vehicle accident, traffic, initial encounter; I10 Essential (primary) hypertension
CPT/HCPCS: 72110; J3490; 99284